=== PATIENT | female | born 1990 | race Caucasian/White ===

== ENCOUNTER 2017-01-31 17:23 | Emergency (ER) | payer BC, OTHER ==
[~2017-01-31] VITALS: Ht 165.1 cm; Wt 69.9 kg
[~2017-01-31 17:23] MED LIST: BCPILLS PO; DOXY100C76 PO
[2017-01-31 17:36] VITALS: TEMP 36.8; Ht 165.1 cm; Wt 69.9 kg
[2017-01-31] MEDS ORDERED: METOCLOPRAMIDE HCL INJ 5 MG/ML 2 ML VIAL IV STA (17:47)
[2017-01-31] MEDS ORDERED: MoRPHine SULFATE 10 MG/ML CARP/VIAL IV STA (17:47)
[2017-01-31] MEDS ORDERED: SODIUM CHLORIDE 0.9% 1000ML 1,000 ML IV STA (17:47)
--- NOTE | 2017-01-31 17:51 | EMERGENCY ROOM VISIT NOTE ---
History Report prepared by Wilmer: Jg Diaz Under the Supervision of: Dr. Walter Mcdaniel M.D. First contact with patient: 17:40 Chief Complaint: ABDOMINAL PAIN Stated Complaint: LOWER ABD PIAN AND GROIN History of Present Illness The patient is a 26 year old female who presents to the Emergency Room with complaints of groin and RLQ abdominal pain that began 3 days ago. She rates her pain a 6/10 in severity. Her pain was gradual in the beginning, but has now been constant. She has not taken anything for the pain. She denies any past medical history. There is no chance that she is . Her last menstrual period was 3 weeks ago. She still has her gallbladder and appendix. She has not had any abdominal surgeries. She denies any urinary symptoms, nausea, vomiting, diarrhea, and other symptoms at this time. Her pain worsens with palpation. Source of History: patient Onset: 3 days ago Position: abdomen (RLQ), pelvis (right groin) Symptom Intensity: 6/10 Quality: sharp Timing: constant Modifying Factors (Worsening): other (palpation) Associated Symptoms: No diarrhea, No nausea, No urinary symptoms, No vomiting Review of Systems See HPI for pertinent positives & negatives. A total of 10 systems reviewed and were otherwise negative. Past Medical & Surgical Medical Problems: (1) No Known Active Medical Problems Family History FH: HTN (hypertension) FH: cancer Social History Smoking Status: Never Smoker Alcohol Use: none Housing Status: lives with family Occupation Status: employed Current/Historical Medications Scheduled Control Pills ( Control Pills), 1 TAB PO DAILY Scheduled PRN Oxycodone/Acetaminophen 5MG/325MG (Percocet 5MG/325MG), 1-2 TAB PO Q4H PRN for Pain Allergies Coded Allergies: Sulfa Antibiotics (Verified Allergy, Unknown, ., 01/31/17) Physical Exam Vital Signs Date Time Temp Pulse Resp B/P Pulse Ox O2 Delivery O2 Flow Rate FiO2 01/31/17 19:50 62 16 152/95 99 01/31/17 17:36 36.8 56 16 150/90 100 Room Air Physical Exam GENERAL: Patient is a healthy-appearing well-nourished HEAD: Normocephalic atraumatic EYES: Ocular movements intact pupils equal and react to light OROPHARYNX mucous membranes are moist no exudates present no erythema or edema present NECK: Supple no nuchal rigidity CHEST: Good equal expansion LUNGS: Clear and equal to auscultation CARDIAC: Normal S1 and S2 ABDOMEN: Soft, mild tenderness to the right lower quadrant. No guarding or rigidity. BACK: No CVA tenderness EXTREMITIES: No pain upon palpation normal muscle strength in all groups no clubbing cyanosis or edema NEURO: Patient is following commands is answering questions appropriately. Alert and oriented x3 Cranial Nerves 2-12 grossly intact Medical Decision & Procedures ER Provider Diagnostic Interpretation: Radiology results as stated below per my review and radiologist interpretation: ULTRASOUND OF THE PELVIS CLINICAL HISTORY: Right pelvic pain. COMPARISON STUDY: No priors. TECHNIQUE: Real-time, grayscale, and color flow sonography of the pelvis is performed both transabdominally and endovaginally. Images are reviewed in the transverse and longitudinal planes. FINDINGS: Uterus: The uterus is normal in size and echotexture, measuring 5.8 x 2.7 x 3.3 cm. Endometrium: The endometrium is normal in appearance, and the endometrial stripe is normal in thickness measuring up to 0.5 cm. Ovaries: The ovaries are normal in size and morphology. The right ovary measures 4.8 x 4.4 x 3.7 cm and the left ovary measures 1.5 x 1.4 x 1.2 cm. There is a 4.5 cm simple appearing right ovarian cyst. Small follicles are noted in the left ovary. Normal Doppler waveforms are shown within both ovaries. Pelvis: There is trace free fluid in the cul-de-sac. No concerning adnexal lesion is seen. IMPRESSION: 1. There is a 4.5 cm simple appearing cyst identified in the right ovary. There is no sonographic evidence of ovarian torsion at the time of examination. 2. Unremarkable sonographic appearance of the uterus and left ovary. 3. There is trace free fluid in the cul-de-sac, likely within physiologic limits. Electronically signed by: Felix Coyne M.D. 01/31/2017 7:14 PM Dictated Date/Time: 01/31/2017 7:12 PM Laboratory Results 01/31/17 18:00 Red Blood Count 4.47, Mean Corpuscular Volume 91.1, Mean Corpuscular Hemoglobin 31.5, Mean Corpuscular Hemoglobin Concent 34.6, Mean Platelet Volume 10.4, Neutrophils (%) (Auto) 45.8, Lymphocytes (%) (Auto) 45.5, Monocytes (%) (Auto) 7.0, Eosinophils (%) (Auto) 1.0, Basophils (%) (Auto) 0.5, Neutrophils # (Auto) 2.77, Lymphocytes # (Auto) 2.75, Monocytes # (Auto) 0.42, Eosinophils # (Auto) 0.06, Basophils # (Auto) 0.03 01/31/17 18:00 Test 01/31/17 00:00 01/31/17 18:00 Urine Color YELLOW Urine Appearance CLEAR (CLEAR) Urine pH 6.5 (4.5-7.5) Urine Specific [place] 1.000 (1.000-1.030) Urine Protein NEG (NEG) Urine Glucose (UA) NEG (NEG) Urine Ketones NEG (NEG) Urine Occult Blood NEG (NEG) Urine Nitrite NEG (NEG) Urine Bilirubin NEG (NEG) Urine Urobilinogen NEG (NEG) Urine Leukocyte Esterase NEG (NEG) Urine Test NEG (NEG) White Blood Count 6.04 K/uL (4.8-10.8) Red Blood Count 4.47 M/uL (4.2-5.4) Hemoglobin 14.1 g/dL (12.0-16.0) Hematocrit 40.7 % (37-47) Mean Corpuscular Volume 91.1 fL (80-100) Mean Corpuscular Hemoglobin 31.5 pg (25-34) Mean Corpuscular Hemoglobin Concent 34.6 g/dl (32-36) Platelet Count 264 K/uL (130-400) Mean Platelet Volume 10.4 fL (7.4-10.4) Neutrophils (%) (Auto) 45.8 % Lymphocytes (%) (Auto) 45.5 % Monocytes (%) (Auto) 7.0 % Eosinophils (%) (Auto) 1.0 % Basophils (%) (Auto) 0.5 % Neutrophils # (Auto) 2.77 K/uL (1.4-6.5) Lymphocytes # (Auto) 2.75 K/uL (1.2-3.4) Monocytes # (Auto) 0.42 K/uL (0.11-0.59) Eosinophils # (Auto) 0.06 K/uL (0-0.5) Basophils # (Auto) 0.03 K/uL (0-0.2) RDW Standard Deviation 42.4 fL (36.4-46.3) RDW Coefficient of Variation 12.7 % (11.5-14.5) Immature Granulocyte % (Auto) 0.2 % Immature Granulocyte # (Auto) 0.01 K/uL (0.00-0.02) Anion Gap 7.0 mmol/L (3-11) Est Creatinine Clear Calc Drug Dose 77.4 ml/min Estimated GFR () 81.4 Estimated GFR (Non- 70.2 BUN/Creatinine Ratio 13.9 (10-20) Calcium Level 8.8 mg/dl (8.5-10.1) Total Bilirubin 0.2 mg/dl (0.2-1) Direct Bilirubin < 0.1 mg/dl (0-0.2) Aspartate Amino Transf (AST/SGOT) 16 U/L (15-37) Alanine Aminotransferase (ALT/SGPT) 24 U/L (12-78) Alkaline Phosphatase 54 U/L (45-117) Total Protein 7.5 gm/dl (6.4-8.2) Albumin 3.5 gm/dl (3.4-5.0) Lipase 166 U/L (73-393) Labs reviewed by ED physician. Medications Administered Medications (Trade) Dose Ordered Sig/Yossi Route Start Time Stop Time Status Last Admin Dose Admin Sodium Chloride (Nss 1000ml) 1,000 ml @ 999 mls/hr Q1H1M STAT IV 01/31/17 17:47 01/31/17 18:47 DC 01/31/17 18:20 999 MLS/HR Oxycodone/ Acetaminophen (Percocet 5/ 325MG Home Pack) 1 homepack UD ONCE PO 01/31/17 19:30 01/31/17 19:31 DC 01/31/17 19:42 1 HOMEPACK ED Course 1740: Past medical records reviewed. The patient was evaluated in room B5. A complete history and physical examination was performed. 1746: Reglan Inj 10 mg IV, Morphine Sulfate 6 mg IV, Sodium Chloride 1000 ml @ 999 mls/hr IV 0: Oxycodone/Acetaminophen 1 homepack PO 3: Upon reexamination the patient is resting. I discussed results and treatment plan with the patient. She verbalizes agreement and understanding. The patient is ready for discharge. Medical Decision Differential diagnosis: Etiologies such as appendicitis, diverticulitis, PUD, biliary pathology, UTI, pancreatitis, obstruction, mesenteric ischemia, aortic pathology, infections, inflammatory bowel disease, renal colic, as well as others were entertained. This is a 26-year-old female who presents emergency department complaining of right lower quadrant abdominal pain. The patient is not by her laboratory work, CBC renal profile liver profile lipase are all normal. Serial abdominal examinations were performed on the patient in the emergency department and at no time did the patient exhibited a surgical abdomen. Using shared medical decision-making the patient was sent for an ultrasound of her pelvis. She did however refuse a CAT scan of the abdomen pelvis based on her laboratory work. An IV was established, patient given normal saline bolus. Repeat abdominal exam again revealed no right lower quadrant rebound or guarding. I believe based on the benign abdominal CAT scan. I do suspect that the patient is suffering from the ovarian cyst. I asked that the patient follow -up with [facility]. She was given Percocet for home. Patient was in agreement with the treatment plan. Impression Primary Impression: Right lower quadrant abdominal pain Additional Impression: Ovarian cyst Scribe Attestation The scribe's documentation has been prepared under my direction and personally reviewed by me in its entirety. I confirm that the note above accurately reflects all work, treatment, procedures, and medical decision making performed by me. Departure Information Dispostion Home / Self-Care Prescriptions Oxycodone/Acetaminophen 5MG/325MG (PERCOCET 5MG/325MG) Tab 1-2 TAB PO Q4H Y for Pain, #14 TAB Prov: Walter Mcdaniel MD 01/31/17 Referrals No Doctor, Assigned (PCP) Forms HOME CARE DOCUMENTATION FORM, IMPORTANT VISIT INFORMATION, School Instructions, Work Instructions Patient Instructions ED Abd Pain Unkn Cause Fem, ED Cyst Ovarian, My [facility] Additional Instructions Follow up with DR Maurer's office You received narcotic or benzodiazepene medication while in the emergency room today. Do not drive, operate heavy machinery, or drink alcohol under the influence of this medication. Take 600 mg Ibuprofen every 6 hours Take Percocet for breakthrough pain Culture results are usually available in approx 48 hours You have been examined and treated today on an emergency basis only. This is not a substitute for, or an effort to provide, complete comprehensive medical care. It is impossible to recognize and treat all injuries or illnesses in a single emergency department visit. It is therefore important that you follow up closely with Dr Scott. Call as soon as possible for an appointment. Thank you for your time and consideration. I look forward to speaking with you again soon. Please don't hesitate to call us if you have any questions. Problem Qualifiers Additional Impression: Ovarian cyst Laterality: right Qualified Codes: N83.201 - Unspecified ovarian cyst, right side
[2017-01-31] MEDS ORDERED: OPTIRAY 320 IV PRN (18:00)
[2017-01-31 18:04] LABS: URINE APPEARANCE CLEAR (CLEAR); URINE BILIRUBIN NEG (NEG); URINE COLOR YELLOW; URINE NITRITE NEG (NEG); URINE PH 6.5 (4.5-7.5); UROBILINOGEN NEG (NEG)
[2017-01-31 18:09] LABS: MANUAL MICROSCOPIC REQUIRED? NO; REVIEW REQ? NO
[2017-01-31 18:14] LABS: BASO % 0.5 %; BASO ABS # 0.03 K/uL (0-0.2); COMPLETE YES; HEMATOCRIT 40.7 % (37-47); IG% 0.2 %; LYMPH % 45.5 %; LYMPH ABS # 2.75 K/uL (1.2-3.4); MEAN CELL VOLUME 91.1 fL (80-100); MEAN CORPUSCULAR HEMOGLOBIN 31.5 pg (25-34); MEAN CORPUSCULAR HGB CONC 34.6 g/dl (32-36); MEAN PLATELET VOLUME 10.4 fL (7.4-10.4); NEUT % 45.8 %; PLATELET COUNT 264 K/uL (130-400); RED BLOOD COUNT 4.47 M/uL (4.2-5.4); WHITE BLOOD COUNT 6.04 K/uL (4.8-10.8)
[2017-01-31 18:33] LABS: ALT/SGPT 24 U/L (12-78); AST/SGOT 16 U/L (15-37); BLOOD UREA NITROGEN 15 mg/dl (7-18); BUN/CREATININE RATIO 13.9 (10-20); CALCIUM 8.8 mg/dl (8.5-10.1); CARBON DIOXIDE 26 mmol/L (21-32); CHLORIDE 109 mmol/L (98-107); GLUCOSE 89 mg/dl (70-99); POTASSIUM 3.7 mmol/L (3.5-5.1); SODIUM 142 mmol/L (136-145)
[2017-01-31 18:36] LABS: ALKALINE PHOSPHATASE 54 U/L (45-117)
--- NOTE | 2017-01-31 19:15 | DIAGNOSTIC IMAGING REPORT ---
ULTRASOUND OF THE PELVIS CLINICAL HISTORY: Right pelvic pain. COMPARISON STUDY: No priors. TECHNIQUE: Real-time, grayscale, and color flow sonography of the pelvis is performed both transabdominally and endovaginally. Images are reviewed in the transverse and longitudinal planes. FINDINGS: Uterus: The uterus is normal in size and echotexture, measuring 5.8 x 2.7 x 3.3 cm. Endometrium: The endometrium is normal in appearance, and the endometrial stripe is normal in thickness measuring up to 0.5 cm. Ovaries: The ovaries are normal in size and morphology. The right ovary measures 4.8 x 4.4 x 3.7 cm and the left ovary measures 1.5 x 1.4 x 1.2 cm. There is a 4.5 cm simple appearing right ovarian cyst. Small follicles are noted in the left ovary. Normal Doppler waveforms are shown within both ovaries. Pelvis: There is trace free fluid in the cul-de-sac. No concerning adnexal lesion is seen. IMPRESSION: 1. There is a 4.5 cm simple appearing cyst identified in the right ovary. There is no sonographic evidence of ovarian torsion at the time of examination. 2. Unremarkable sonographic appearance of the uterus and left ovary. 3. There is trace free fluid in the cul-de-sac, likely within physiologic limits. Electronically signed by: Felix Coyne M.D. 01/31/2017 7:14 PM Dictated Date/Time: 01/31/2017 7:12 PM
[2017-01-31] MEDS ORDERED: OXYC-57 PO (19:24)
[2017-01-31] MEDS ORDERED: PERCOCET HOME PACK PO ONE (19:30)
[2017-01-31 19:50] VITALS: BP 152/95; PULSE 62; O2SAT 99
== END 2017-01-31 19:52 | disposition home or self-care (01) ==
LOC: C.EDB 17:25
DX: R10.31 Right lower quadrant pain (principal); N83.201 Unspecified ovarian cyst, right side; Z88.2 Allergy status to sulfonamides; Z82.49 Family history of ischemic heart disease and other diseases of the circulatory system

== ENCOUNTER 2020-01-08 22:57 | Inpatient (IN) ==
[2020-01-09] MEDS ORDERED: OXYTOCIN 30 UNITS/500 ML BAG IV PRN ×2 (01:39→10:07)
[2020-01-09] MEDS: LACTATED RINGER'S 1,000 ML IV PRN ×3 (01:47→06:30)
[2020-01-09] MEDS ORDERED: BUPIVACAINE 0.25% 30 ML VIAL ONE (01:50)
[2020-01-09] MEDS ORDERED: fentaNYL 2MCG/ML ROPIV 1.25MG/ML 100 ML BAG EPI ONE (01:50)
[2020-01-09] MEDS ORDERED: ePHEDrine sulfate 50 MG/ML AMP ONE (01:50)
[2020-01-09] MEDS ORDERED: fentaNYL citrate 100 MCG/2 ML VIAL ONE (01:50)
[2020-01-09 02:03] LABS: Hematocrit (blood only) 38.1 % (37-47); Hemoglobin 13.8 g/dL (12.0-16.0); Mean Corpuscular Hemoglobin 33.3 pg (25-34); Mean Platelet Volume 11.2 fL (7.4-10.4); Platelet Count 213 K/uL (130-400); RDW Coefficient of Variation 13.2 % (11.5-14.5); Red Blood Count 4.14 M/uL (4.2-5.4); White Blood Count 11.74 K/uL (4.8-10.8)
[2020-01-09 02:05] LABS: Mean Corpuscular Hgb Conc 36.2 g/dL (32-36)
--- NOTE | 2020-01-09 02:30 | Anesthesiology Consultation ---
Date of Service January 09, 2020 Assessment & Plan (1) Encounter for pre-operative examination: Chart Review Chart Review: Acceptable Risk for Labor Epidural History Height/Weight Height: 5 ft 5 in Weight: 78.471 kg Allergies Allergy/AdvReac Type Severity Reaction Status Date / Time Sulfa (Sulfonamide Allergy Unknown Hives Verified 01/08/20 23:07 Antibiotics) Medications Home Medications Medication Instructions Recorded Confirmed Last Taken vit-iron fum-folic ac 1 tab PO DAILY 01/08/20 01/08/20 01/08/20 20:00 [ Vitamin] valacyclovir [Valtrex] 500 mg PO DAILY 01/08/20 01/08/20 01/08/20 08:00 Active Medications Generic Name Dose Route Start Last Admin Trade Name Freq PRN Reason Stop Dose Admin Lactated Ringer's 1,000 mls @ 125 mls/hr 01/09/20 01:39 01/09/20 01:47 Lr IV 01/11/20 01:38 999 mls/hr .Q8H PRN Administration L&D Protocol Protocol Past Medical History Medical History No active medical problems No significant medical problems Social History Smoking Status: Never smoker Hx Alcohol Use: No Hx Substance Use: No substance use type: does not use Physical Exam Vital Signs Last Vital Signs Temp 36.5 C 01/08/20 23:05 Pulse 57 L 01/09/20 02:24 Resp 18 01/08/20 23:05 BP 145/86 H 01/09/20 01:56 Pulse Ox 100 01/09/20 02:24 Testing Laboratory Results 01/09/20 01:53
[2020-01-09] MEDS ORDERED: fentaNYL 2MCG/ML ROPIV 1.25MG/ML 100 ML BAG EPI PRN (03:09)
[2020-01-09] MEDS ORDERED: ONDANSETRON INJ 2 MG/ML 2 ML VIAL IV PRN (03:09)
[2020-01-09] MEDS ORDERED: ePHEDrine sulfate 50 MG/ML AMP IV PRN (03:09)
[2020-01-09] MEDS ORDERED: NALOXONE HCL 0.4 MG/1 ML VIAL/CARP IV PRN (03:09)
[2020-01-09] MEDS ORDERED: NALOXONE HCL 1 MG in SODIUM CHLORIDE 0.9% 1000ML 1,000 ML IV PRN (03:09)
--- NOTE | 2020-01-09 07:23 | Obstetrical Progress Note ---
Date of Service January 09, 2020 Assessment & Plan Admission and Anticipated Discharge Date Admission Date: January 09, 2020 Subjective Admit Note 29 F P0000 at 40.3 weeks admitted in labor. GBS is negative. FHT Cat 1. Will admit in labor. Plan for epidural. Results & Data ([facility]) Vital Signs (Past 12 Hours) Vital Signs Temp Pulse Resp BP Pulse Ox 01/09/20 07:16 71 172/66 H 01/09/20 07:15 83 97 01/09/20 07:10 87 97 01/09/20 07:05 78 97 01/09/20 07:00 100 H 98 01/09/20 06:55 97 H 97 01/09/20 06:50 76 97 01/09/20 06:45 79 97 01/09/20 06:40 80 97 01/09/20 06:35 107 H 97 01/09/20 06:31 90 92 01/09/20 06:30 87 98 01/09/20 06:27 77 153/73 H 01/09/20 06:26 102 H 91 01/09/20 06:25 90 94 01/09/20 06:20 152 H 98 01/09/20 06:19 113 H 86 L 01/09/20 06:15 98 H 98 01/09/20 06:10 112 H 97 01/09/20 06:05 138 H 98 01/09/20 06:00 80 97 01/09/20 05:58 91 H 128/75 01/09/20 05:55 87 97 01/09/20 05:50 76 97 01/09/20 05:45 37.0 C 81 18 98 01/09/20 05:41 65 108/63 01/09/20 05:40 65 97 01/09/20 05:35 88 97 01/09/20 05:30 60 96 01/09/20 05:27 65 18 104/57 L 01/09/20 05:25 62 96 01/09/20 05:20 61 97 01/09/20 05:15 64 96 01/09/20 05:13 65 18 118/70 01/09/20 05:10 66 97 01/09/20 05:05 72 97 01/09/20 05:00 75 97 01/09/20 04:57 93 H 105/63 01/09/20 04:55 89 97 01/09/20 04:50 114 H 98 01/09/20 04:45 127 H 96 01/09/20 04:40 78 123/74 97 01/09/20 04:37 90 97 01/09/20 04:32 69 97 01/09/20 04:27 74 98 01/09/20 04:24 71 18 119/81 01/09/20 04:22 64 99 01/09/20 04:17 66 99 01/09/20 04:12 87 125/72 99 01/09/20 04:07 66 100 01/09/20 04:02 69 100 01/09/20 04:00 106/72 01/09/20 03:57 87 98 01/09/20 03:53 90 92 01/09/20 03:52 85 97 01/09/20 03:48 36.4 C L 18 01/09/20 03:47 89 100 01/09/20 03:44 110/60 01/09/20 03:42 84 99 01/09/20 03:39 94 H 94 01/09/20 03:37 90 97 01/09/20 03:32 101 H 98 01/09/20 03:28 110 H 93 01/09/20 03:27 105 H 97 01/09/20 03:25 18 122/76 01/09/20 03:22 101 H 99 01/09/20 03:21 84 18 136/71 01/09/20 03:17 89 99 01/09/20 03:16 142 H 184/115 H 01/09/20 03:14 85 87 L 01/09/20 03:12 89 176/116 H 99 01/09/20 03:09 103 H 137/76 01/09/20 03:07 91 H 98 01/09/20 03:04 62 144/99 H 01/09/20 03:03 70 20 153/109 H 01/09/20 03:02 63 99 01/09/20 02:57 56 L 98 01/09/20 02:52 56 L 98 01/09/20 02:47 55 L 99 01/09/20 02:42 62 98 01/09/20 02:34 61 100 01/09/20 02:29 58 L 100 01/09/20 02:24 57 L 100 01/09/20 02:20 69 89 L 01/09/20 02:19 71 100 01/09/20 02:14 69 100 01/09/20 02:09 64 100 01/09/20 02:06 214 H 88 L 01/09/20 01:58 59 L 100 01/09/20 01:56 56 L 145/86 H 01/09/20 01:53 67 100 01/09/20 01:48 53 L 100 01/08/20 23:36 75 131/88 01/08/20 23:16 82 134/85 01/08/20 23:05 36.5 C 85 18 151/95 H
--- NOTE | 2020-01-09 07:26 | Delivery Summary ---
Vaginal Delivery Summary Date of Service January 09, 2020 Vaginal Delivery Summary Delivery Note live female over intact perineum CHRISTOPHER with tight nuchal cord x1 reduced at delivery. Delayed cord clamping. Apgars 7/9 weight pending. cord blood obtained followed by spontaneous delivery of intact placenta. No tears. EBL 100 ml. Final sponge and instrument count are correct. Mom and baby stable.
--- NOTE | 2020-01-09 09:17 | Anesthesia Procedure Note ---
Date of Service January 09, 2020 Anesthesia Post Epidural Note Vital Signs Vital Signs: Temp Pulse Resp BP Pulse Ox 36.7 C 71 18 140/82 97 01/09/20 07:28 01/09/20 09:11 01/09/20 07:28 01/09/20 09:11 01/09/20 07:30 Pain Intensity Abdomen: Pain Intensity: 3 Notes Mental Status: alert / awake / arousable and participated in evaluation Nausea / Vomiting: adequately controlled Pain: adequately controlled Airway Patency, RR, SpO2: stable & adequate BP & HR: stable & adequate Hydration State: stable & adequate Neuraxial Anesthesia: was administered and sensory block is resolving Anesthetic Complications: no major complications apparent and Pt Satisfied with anesthetic care Epidural: Removed without complications and With tip intact
[2020-01-09] MEDS ORDERED: DIPHTHERIA/TETANUS/PERTUSSIS 0.5 ML SYR/VIAL IM ONE (10:07)
[2020-01-09] MEDS ORDERED: BENZOCAINE 20% AER SPR 82.5 GM CAN EXT PRN (10:07)
[2020-01-09] MEDS ORDERED: MEASLES, MUMPS & RUBELLA VIRUS VIAL SQ ONE (10:07)
[2020-01-09] MEDS ORDERED: ACETAMINOPHEN 325 MG TAB PO PRN (10:07)
[2020-01-09] MEDS ORDERED: NON-FORMULARY MEDICATION (Prenatal Vit-Iron Fum-Folic Ac [Prenatal Vitamin] 1 TAB) PO SCH (10:07)
[2020-01-09] MEDS ORDERED: HYDROCORTISONE ACETATE 25 MG SUPP PR PRN (10:07)
[2020-01-09] MEDS ORDERED: SUPERCREAM 0.870% 15 GM JAR EXT PRN (10:07)
[2020-01-09] MEDS ORDERED: bisacodyL 10 MG SUPP PR PRN (10:07)
[2020-01-09] MEDS: IBUPROFEN 600 MG TAB PO PRN ×2 (10:18→18:37)
[2020-01-09] MEDS: FERROUS SULFATE 325 MG TAB PO SCH (10:23)
[2020-01-09] MEDS: PRENATAL VITAMIN 1 TAB PO SCH (10:23)
[2020-01-09] MEDS: DOCUSATE SODIUM 100 MG CAP PO SCH ×2 (10:23→20:39)
[2020-01-10 06:32] LABS: Hematocrit (blood only) 36.5 % (37-47); Hemoglobin 12.2 g/dL (12.0-16.0); Mean Corpuscular Hemoglobin 32.1 pg (25-34); Mean Corpuscular Hgb Conc 33.4 g/dL (32-36); Mean Corpuscular Volume 96.1 fL (80-100); Mean Platelet Volume 11.1 fL (7.4-10.4); Platelet Count 176 K/uL (130-400); RDW Coefficient of Variation 13.6 % (11.5-14.5); RDW Standard Deviation 46.9 fL (36.4-46.3)
--- NOTE | 2020-01-10 08:51 | Obstetrical Progress Note ---
Date of Service January 10, 2020 Assessment & Plan Admission and Anticipated Discharge Date Admission Date: January 09, 2020 Subjective doing well Physical Exam Constitutional: WD/WN, vitals as above comfortable abdomen soft fundus firm no edema neg Suellen's tent d/c in AM Results & Data ([facility]) Vital Signs (Past 12 Hours) Vital Signs Temp Pulse Pulse Resp BP Pulse Ox 01/10/20 08:00 36.5 C 77 20 133/87 97 01/10/20 03:05 36.5 C 66 16 142/89 H 97 01/09/20 23:00 36.6 C 60 16 144/91 H 97 Laboratory Results Laboratory Results - last 72 hr 01/09/20 01/10/20 01:53 06:08 WBC 11.74 H 12.90 H RBC 4.14 L 3.80 L Hgb 13.8 12.2 Hct 38.1 36.5 L MCV 92.0 96.1 MCH 33.3 32.1 MCHC 36.2 H 33.4 RDW Std Deviation 44.0 46.9 H RDW Coeff of Nohelia 13.2 13.6 Plt Count 213 176 MPV 11.2 H 11.1 H
[2020-01-10] MEDS: DOCUSATE SODIUM 100 MG CAP PO SCH ×2 (09:00→20:50)
[2020-01-10] MEDS: FERROUS SULFATE 325 MG TAB PO SCH (09:00)
[2020-01-10] MEDS: IBUPROFEN 600 MG TAB PO PRN ×2 (09:00→17:57)
[2020-01-10] MEDS: PRENATAL VITAMIN 1 TAB PO SCH (09:00)
[2020-01-10] MEDS ORDERED: bisacodyL 5 MG TABEC PO SCH (20:00)
[2020-01-11 07:00] LABS: Hematocrit (blood only) 36.6 % (37-47); Hemoglobin 12.5 g/dL (12.0-16.0)
[2020-01-11] MEDS: DOCUSATE SODIUM 100 MG CAP PO SCH (08:18)
[2020-01-11] MEDS: FERROUS SULFATE 325 MG TAB PO SCH (08:18)
[2020-01-11] MEDS: PRENATAL VITAMIN 1 TAB PO SCH (08:18)
[2020-01-11] MEDS: IBUPROFEN 600 MG TAB PO PRN ×2 (08:18→18:29)
--- NOTE | 2020-01-11 11:27 | Obstetrical Progress Note ---
Date of Service January 11, 2020 Assessment & Plan Admission and Anticipated Discharge Date Admission Date: January 09, 2020 Physical Exam Physical Exam: abdomen soft and non tender no calf tenderness ambulating well vaginal bleeding scant hgb 23.5 Results & Data ([facility]) Vital Signs (Past 12 Hours) Vital Signs Temp Pulse Resp BP Pulse Ox 01/11/20 08:10 36.7 C 64 18 139/83 99 01/10/20 23:40 36.5 C 57 L 18 144/85 H
[2020-01-11] MEDS ORDERED: LABETALOL HCL 100 MG TAB PO SCH ×2 (21:00)
== END 2020-01-11 20:05 | disposition home or self-care (01) | DRG 807 ==
LOC: OPB 22:57 → 4S1 23:02 → 4N 01-09 10:16 → 4S2 01-10 20:59

== ENCOUNTER 2025-01-27 04:39 | Inpatient (IN) ==
--- OUTSIDE RECORDS SUMMARY | 2025-01-27 04:43 | External Medical Summary ---
Author Name Unknown Address Unknown Organization [id number]:[facility] [address] [place] [address] Laboratory Report Ordering Provider Test Date Status NICK BRADFORD 01/09/2025 16:09:07 Final Observation Date Value Abnormality Reference (Units ) Status Streptococcus agalactiae DNA [Presence] in Specimen by YANCI with probe detection 01/09/2025 16:09:07 Negative Negative Final No Group B Streptococcus det ected by culture-enhanced PCR (amplified probe). GBS GBSCT - [facility] 01/09/2025 16:09:07 0.0 Final GBS SPCCT - [facility] 01/09/2025 16:09:07 31.5 Final Performing Location [facility] - [address] [place] [id number]
--- OUTSIDE RECORDS SUMMARY | 2025-01-27 04:43 | External Medical Summary | Summary of Care ---
Author Name Unknown Organization [facility] Address [address] [facility] [place] [address] Phone [phone] Care Team Providers Care Continuous Drier Operator Name Role Phone Jay Scott MD Primary Care Provide r Reason for Visit * Reason Onset Date Comments Forms Request 12/09/2024 Encounter Details Date Type Department Care Team (Late st Contact Info) Description 12/09/2024 Telephone Gynecology/Obstetrics [facility] [address] [place] [phone] Taina Davis PA-C [address] [place] [phone] Forms Request Allergies Active Allergy Reactions Criticality Noted Date Comments Bee Venom 01/28/2003 Sulfa Antibiotics Hives High 04/08/2013 documented as of this encounter (statuses as of 12/09/2024) Medications 28-0.8 MG Oral Tablet Take by mouth. Active Escitalopram Oxalate 5 MG Oral Tablet (Lexapro)Indica tions:CROW (generalized anxiety disorder) Take 1 Tablet by mouth in the morning. In the morning.. 90 Tablet 3 10/18/2024 Active Breast Pump Dispense double electric breast pump. Dx:Z39.1 1 Each 11/25/2024 Active valACYclovir HCl 500 MG Oral Tablet (Valtrex)Indica tions:HSV-1 (herpes simplex virus 1) infection Take 1 Tablet by mouth in the morning and 1 Tablet before bedtime. Staring at 36 weeks .. 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 CROW (generalized anxiety disorder) 12/28/2021 Overview (07/01/2024): Taking lexapro HSV-1 (herpes simplex virus 1) infection 015 Overview (05/24/2019): Valtrex 36 weeks Acne Estimated Date of Delivery Comme nts Yes 01/30/2025 Based on last me nstrual period of 04/25/2024 (Approximate) documented as of this encounter (statuses as of 12/09/2024) Resolved Problems Problem Noted Date Diagnosed Date Resolved Date , normal first 05/24/201904/21 Routine medical exam 10/19/2013 024 documented as of this encounter (statuses as of 12/09/2024) Immunizations Name Administration Dates Next Due DTP Vaccine 06/27/1994, 3,05/17/1993,03/08 DTaP Dipth/Tet/Acell Pertussis (Infanrix), Peds 09/30/1997 HPV Vaccine, 4-Valent 07/29/2009,02/10/2009,11/21 Haemophilius B (HIB), unspecified 1993,07/20/1993,05/17/1993,03/08 Hepatitis B Vaccine 07/20/1993,02/02/1993,1992 MMR - Measles/Mumps/Rubella Vaccine 09/30/1997,0 06/27/1994 Meningococcal Conjugate Vacc ine (Menactra/Menveo) 12/18/2008 OPV - Polio Virus Vaccine (Oral) 997,06/27/1994,05/17/1993,03/08 PPD 03/31/2015,08/26/2013,07/02/2012 Seasonal Influenza Vac., MDV , IM, 0.5 mL (Fluzone) 08/30/2011,09/24/2007,10/23/2003 Seasonal Influenza, PF, 6 M & above, IM , (FluLaval or Fluzone) 11/18/2020,10/14/2019 TB Nicki Test 02/16/1999 TD, Preservative Free 06/07/2005 TDAP (age 10 and older)(Boostrix) 10/14/2019 TDAP, Age 7 and older, IM (Adacel) 05/10/2010 documented as of this encounter Social History Tobacco Use Types Packs/Day Years Used Date Smoking Tobacco: Never Smokeless Tobacco: Never Alcohol Use Standard Drinks/Week Comments No 0 (1 standard drink = 0.6 oz pur e alcohol) PHQ-2 Answer Date Recorded PHQ-2 Score 0 05/14/2019 Hunger Vital Sign Answer Date Recorded Within the past 12 months, y ou worried that your food would run out before you got the money to buy more. Never true 12/09/19 25 Within the past 12 months, t he food you bought just didn't last and you didn't have money to get more. Never true 12/09/2024 [place] Depression Scale Answer Date Recorded [place] Depression Scale Total 4 07/01/2024 The thought of harming myself has occurred to me . Never 07/01/2024 Childcare Answer Date Recorded Do you feel overwhelmed with taking care of a child, family member or friend? No 12/09/2024 Does your family need help f inding childcare? (Household - for ages 0-17 years) Not on file 12/09/2024 Clothing Answer Date Recorded Have you been unable to get clothing when it was really needed? No 12/09/2024 Is your family able to get c lothes or diapers when needed? (Household - for ages 0-17 years) Not on file 12/09/2024 Personal Safety Answer Date Recorded Do you feel unsafe or have concerns for your saf ety? No 12/09/2024 Do you have concerns for you r family's safety? (Household - for ages 0-17 years) Not on file 12/09/2024 Utilities Answer Date Recorded Do you have trouble paying y our heating, water, or electric bill? No 12/09/2024 Is your family able to pay t he heat, water, or electric bill? (Household - for ages 0-17 years) Not on file 12/09/2024 Does your family have access to good internet? (Household - for ages 0-17 years) Not on file 12/09/2024 Employment Status Answer Date Recorded Are you unemployed or without regular income? No 12/09/2024 Does the household have a re lar source of income? (Household - for ages 0-17 years) Not on file 12/09/2024 Social Connections Answer Date Recorded How often do you feel lonely or isolated from th ose around you? Never 12/09/2024 Financial Resource Strain Answer Date R ecorded Do you have any trouble payi ng for your medications, or do you think you might in the future? No 12/09/2024 Does your family have troubl e paying for medicine? (Household - for ages 0-17 years) Not on file 12/09/2024 Transportation Needs Answer Date Record ed Do you have trouble getting a ride to medical visits or work? (Adult - for ages 18 years and over) Not on file 12/09/2024 Does your family have a hard time getting a ride to doctors visits? (Household - for ages 0-17 years) Not on file 12/09/2024 Has lack of transportation k ept you from medical appointments, meetings, work, or from getting things needed for daily living? Check all that apply. No 12/09/2024 Do you (or your family) have trouble finding or paying for a ride (transportation)? (Household - for ages 0-17 years) Not on file 12/09/2024 Housing Stability Answer Date Recorded Do you currently live in a s helter or have no steady place to sleep at night? No 12/09/2024 Do you think you are at risk of becoming homeless? (Adult - for ages 18 years and over) Not on file 12/09/2024 Does your family worry about paying for your home or becoming homeless? (Household - for ages 0-17 years) Not on file 0 12/09/2024 Are you homeless or worried that you might be in the future? No 12/09/2024 Are you (or your family) torrey eless or worried that you might be in the future? (Household - for ages 0-17 years) Not on file Food Insecurity Answer Date Recorded Do you need food for this week? No 12/09/2024 Are you able to get enough f ood for your family? (Household - for ages 0-17 years) Not on file 12/09/2024 Does your family need food t his week? (Household - for ages 0-17 years) Not on file 12/09/2024 Do you always have enough fo od for your family? (Household - for ages 0-17 years) Not on file 12/09/2024 Estimated Date of Delivery Comme nts Yes 01/30/2025 Based on last me nstrual period of 04/25/2024 (Approximate) Sex and Gender Information Value Date Recorded Sex Assigned at Female 06/18/2024 2:00 PM EDT Legal Sex Female 7:15 AM EST Gender Identity Female 06/18/2024 2:00 PM EDT Sexual Orientation Straight 06/18/2024 2: 00 PM EDT documented as of this encounter Miscellaneous Notes * Telephone Encounter - Caryn Camp LPN - 12/09/2024 5:05 PM EST On Taina's desk for signature. * Telephone Encounter - Caryn Camp LPN - 12/09/2024 4:57 PM EST Pt dropped of FMLA. On Caryn's desk. documented in this encounter Plan of Treatment Upcoming Encounters Date Type Department Care Team (Late st Contact Info) Description 12/23/2024 11:30 AM EST Office Visit Gynecology/Obstetrics [address] [place] [address] Rachelle Post CRNP [address] [place] [phone] 12/23/2024 2:20 PM EST Office Visit Dermatology [address] [place] [address] Rosalia Dove PA-C [address] [place] [address] [place] [phone] 06/23/2025 6:20 PM EDT Office Visit Family Medicine [address] [place] [phone] Jay Scott MD [address] [place] [address] [place] [phone] Health Maintenance Due Date Last Done Comments Depression Screening 05/14/2020 05/14/2019 HPV/Co-Test 2022 COVID-19 Vaccine ( season) 2024 Influenza Vaccine (FLU shot) (#1) 2024 11/18/2020, 10/14/2019, 08/30/2011, Additional history exists Cervical Cancer Screening 12/28/2024 Pap Smear 12/28/2024 12/28/2021, 12/2017, 05/04/2015, Additional history exists DTap/Tdap Vaccines (8 - Td or Tdap) 10/14/2029 10/14/2019, 05/10/2010, 06/07/2005, Additional history exists Hepatitis B Vaccine Completed 07/20/1993, 02/02/1993, 1992 MENINGOCOCCAL (MENACTRA/MENVEO) Aged Out 12/18/2008 No longer eligible based on patient's age to complete this topic HPV (Gardasil) Vaccine Completed 9, 02/10/2009, 12/18/2008 Pneumococcal Vaccine: Pediatrics (0 to 5 Years) and At-Risk Patients (6 to 18 Years and 19+ Years) Aged Out No longer eligib le based on patient's age to complete this topic documented as of this encounter Medical Devices Not on filedocumented as of this encounter Care Teams Continuous Drier Operator Relationship Specialty Start Date End Date Jay Scott MD [address] [place] [address] [place] [phone] PCP - General Family Medicine 11/23/23 documented as of this encounter
--- OUTSIDE RECORDS SUMMARY | 2025-01-27 04:43 | External Medical Summary | Summary of Care ---
Author Name Unknown Organization [facility] Address [address] [facility] [place] [address] Phone [phone] Care Team Providers Care Bark Peeler Name Role Phone Jay Scott MD Primary Care Provide r Reason for Visit * Reason Comments Return Visit Encounter Details Date Type Department Care Team (Late st Contact Info) Description 01/21/2025 12:00 PM EST Office Visit Gynecology/Obstetric s [facility] [address] [place] [phone] Rachelle Post CRNP [address] [place] [phone] Encounter for supervision of normal in multigravida in third trimester*; HSV-1 (herpes simplex virus 1) infection; CROW (generalized anxiety disorder) Allergies Active Allergy Reactions Criticality Noted Date Comments Bee Venom 01/28/2003 Sulfa Antibiotics Hives High 04/08/2013 documented as of this encounter (statuses as of 01/21/2025) Medications 28-0.8 MG Oral Tablet Take by [...] as of this encounter (statuses as of 01/21/2025) Active Problems Problem Noted Date Diagnosed Date [...] as of this encounter (statuses as of 01/21/2025) Resolved Problems Problem Noted Date Diagnosed Date Resolved Date , normal first 05/24/201904/21 Routine medical exam 10/19/2013 024 documented as of this encounter (statuses as of 01/21/2025) Immunizations Name Administration Dates Next Due HPV Vaccine, 4-Valent 07/29/2009,02/10/2009,11/21 Meningococcal Conjugate Vacc ine (Menactra/Menveo) 12/18/2008 PPD 03/31/2015,08/26/2013,07/02/2012 Seasonal Influenza Vac., MDV , IM, 0.5 mL (Fluzone) 08/30/2011,09/24/2007 Seasonal Influenza, PF, 6 M & above, IM , (FluLaval or Fluzone) 11/18/2020,10/14/2019 TDAP (age 10 and older)(Boostrix) 10/14/2019 TDAP, [...] money to buy more. Never true 12/09/19 Within the past 12 months, t he food you bought just didn't last and you didn't have money to get more. Never true 12/09/2024 [place] Depression Scale Answer Date Recorded [place] Depression Scale Total 0 01/09/2025 The thought of harming myself has occurred to me . Never 01/09/2025 Childcare Answer Date Recorded Do you feel [...] 12/09/2024 Does the household have a re gular source of income? (Household - for ages [...] ages 0-17 years) Not on file 12/09/2024 Food Insecurity Answer Date Recorded Within the past 12 months, y ou worried that your food would run out before you got the money to buy more. Never true 12/09/19 25 Within the past 12 months, t he food you bought just didn't last and you didn't have money to get more. Never true 12/09/2024 Do you need food for this week? No 12/09/2024 Estimated Date of Delivery Comme nts Yes 01/30/2025 Based on last me nstrual period of 04/25/2024 (Approximate) Sex and Gender Information Value Date Recorded Sex Assigned at Female 06/18/2024 2:00 PM EDT Legal Sex Female 7:15 AM EST Gender Identity Female 06/18/2024 2:00 PM EDT Sexual Orientation Straight 06/18/2024 2: 00 PM EDT documented as of this encounter Last Filed Vital Signs Vital Sign Reading Time Taken Comments Blood Pressure 118/80 01/21/2025 11:41 AM EST Pulse - - Temperature - - Respiratory Rate - - Oxygen Saturation - - Inhaled Oxygen Concentration - - Weight 77.4 kg (170 lb 9.6 oz) 01/21/2025 11:41 AM EST Height - - Body Mass Index 28.39 01/16/2025 3:34 PM EST documented in this encounter Progress Notes * Rachelle Post CRNP - 01/21/2025 11:54 AM EST 38w5d Has had intermittent contractions for the past few days, coming and going. Would like cervical check. No other concerns. Baby is active. No bleeding or LOF. Has IOL 02/05, but is hoping she can get sooner. Nothing sooner available today. Bilingual Teacher Assistant Documentation Patient offered box maker and declined. CINTHIA Dasilva * Aleksandra Neely CMA - 01/21/2025 11:41 AM EST 38w5d + contractions, not time able right now. More at night, lasts 1-2 hours. Requesting cervical check documented in this encounter Plan of Treatment Upcoming Encounters Date Type Department Care Team (Late st Contact Info) Description 01/28/2025 1:45 PM EDT Office Visit Gynecology/Obstetrics Elke Melendez [address] [place] [phone] Elva Mitchell CRNP [address] [place] [phone] 04/15/2025 10:45 AM EDT Office Visit Dermatology [facility] [place] [address] [facility] [place] [address] Parvez Maldonado MD [address] [facility] [place] [phone] 06/23/2025 6:20 PM EDT Office Visit Family Medicine [address] [phone] Jay Scott MD [address] [place] [address] [place] [phone] Health Maintenance Due Date Last Done Comments Depression Screening 05/14/2020 05/14/2019 HPV/Co-Test 2022 COVID-19 Vaccine ( season) 2024 Influenza Vaccine (FLU shot) (#1) 2024 11/18/2020, 10/14/2019, 08/30/2011, Additional history exists Cervical Cancer Screening 12/28/2024 Pap Smear 12/28/2024 12/28/2021, 0712/2017, 05/04/2015, Additional history exists DTap/Tdap Vaccines (8 - Td or Tdap) 10/14/2029 10/14/2019, 05/10/2010, 06/07/2005, Additional history exists Hepatitis B Vaccine Completed 07/20/1993, 02/02/1993, 1992 MENINGOCOCCAL (MENACTRA/MENVEO) Aged Out 12/18/2008 No longer eligible based on patient's age to complete this topic HPV (Gardasil) Vaccine Completed 9, 02/10/2009, 12/18/2008 Meningitis B Vaccine (Bexsero/Trumemba) Aged Out No longer eligible based on patient's age to complete this topic Pneumococcal Vaccine: Pediatrics (0 to 5 Years) and At-Risk Patients (6 to 18 Years and 19+ Years) Aged Out No longer eligib le based on patient's age to complete this topic documented as of this encounter Medical Devices Not on filedocumented as of this encounter Visit Diagnoses Diagnosis Encounter for supervision of normal in multigravida in third trimester- Primary HSV-1 (herpes simplex virus 1) infection Herpes simplex without mention of complication CROW (generalized anxiety disorder) Generalized anxiety disorder documented in this encounter Care Teams Bark Peeler Relationship Specialty Start Date End Date Jay Scott MD [address] [place] [address] [place] [phone] PCP - General Family Medicine 11/23/23 documented as of this encounter
--- OUTSIDE RECORDS SUMMARY | 2025-01-27 04:43 | External Medical Summary | Summary of Care ---
Author Name Unknown Organization [facility] Address [address] [facility] [place] [address] Phone [phone] Care Team Providers Care Butadiene Converter Utility Operator Name Role Phone Jay Scott MD Primary Care Provide r Reason for Visit * Reason Comments Return Visit Encounter Details Date Type Department Care Team (Late st Contact Info) Description 01/09/2025 3:45 PM EST Office Visit Gynecology/Obstetric s Elke Melendez [address] [place] [phone] Rosalia Levin PA-C [address] [place] [phone] Encounter for supervision of other normal , third trimester*; HSV-1 (herpes simplex virus 1) infection; CROW (generalized anxiety disorder) Allergies Active Allergy Reactions Criticality Noted Date Comments Bee Venom 01/28/2003 Sulfa Antibiotics Hives High 04/08/2013 documented as of this encounter (statuses as of 01/09/2025) Medications 28-0.8 MG Oral Tablet Take by [...] as of this encounter (statuses as of 01/09/2025) Active Problems Problem Noted Date Diagnosed Date [...] as of this encounter (statuses as of 01/09/2025) Resolved Problems Problem Noted Date Diagnosed Date Resolved Date , normal first 05/24/201904/21 Routine medical exam 10/19/2013 024 documented as of this encounter (statuses as of 01/09/2025) Immunizations Name Administration Dates Next Due DTP [...] money to get more. Never true 12/09/2024 [place] Depression Scale Answer Date Recorded [place] Depression Scale Total 0 01/09/2025 The thought [...] Sign Reading Time Taken Comments Blood Pressure 116/78 01/09/2025 3:37 PM EST Pulse - - Temperature - - Respiratory Rate - - Oxygen Saturation - - Inhaled Oxygen Concentration - - Weight 76.7 kg (169 lb) 01/09/2025 3:37 PM EST Height 165.1 cm (5' 5") 01/09/2025 3:37 PM EST Body Mass Index 28.12 01/09/2025 3:37 PM EST documented in this encounter Progress Notes * Rosalia Levin PA-C - 01/09/2025 3:41 PM EST Trey Gutierrez is a 34 year old female here for her routine OB appointment at 37w0d Her Estimated Date of Delivery: 01/30/25 REVIEW OF SYSTEMS She affirms movement. Denies vaginal bleeding, LOF, contractions, headaches, vision changes, chest pain, RUQ pain. [place] Depression Scale [place] Depression Scale Total: (Patient-Rptd) 0 [place] suicide question and score: Score of 3 = Yes, quite often. Score of 2 = Sometimes. Score of 1 = Hardly ever The thought of harming myself has occurred to me.: (Patient-Rptd) 0 PHYSICAL EXAM Filed Vitals: 01/09/25 1537 BP: 116/78 Weight: 76.7 kg (169 lb) Height: 1.651 m (5' 5") +FHT 120s Fundal height 37 cm Position: cephalic - confirmed on bedside U/S GBS collected today. Job Development Specialist Documentation Patient offered recreation supervisor and accepted. Name of recreation supervisor: Caryn Santana LPN. ASSESSMENT/PLAN Encounter for supervision of other normal , third trimester (Primary) - GROUP B STREP CULTURE/PCR; Future; Expected date: 01/09/2025 HSV-1 (herpes simplex virus 1) infection CROW (generalized anxiety disorder) Supervision of - labor precautions and kick counts reviewed RTO in 1 week Rosalia Levin PA-C 01/09/2025 documented in this encounter Nursing Notes * Caryn Camp LPN - 01/09/2025 3:42 PM EST 37w0d Gbs today documented in this encounter Plan of Treatment Upcoming Encounters Date Type Department Care Team (Late st Contact Info) Description 01/16/2025 3:45 PM EST Office Visit Gynecology/Obstetrics [facility] [address] [place] [phone] Rosalia Levin PA-C [address] [place] [phone] 04/15/2025 10:45 AM EDT Office Visit Dermatology [place] [place] [address] [facility] [place] [address] Parvez Maldonado MD [address] [facility] [place] [phone] 06/23/2025 6:20 PM EDT Office Visit Family Medicine [address] [phone] Jay Scott MD [address] [place] [address] [place] [phone] Pending Results Name Type Priority Associated Diagnoses Date /Time GROUP B STREP CULTURE/PCR Lab Routine Encounter for supervision of other normal , third trimester 01/09/2025 4:09 PM EST Scheduled Orders Name Type Priority Associated Diagnoses Orde r Schedule GROUP B STREP CULTURE/PCR Lab Routine Encounter for supervision of other normal , third trimester Expected: 01/09/2025, Expires: 01/09/2026 Health Maintenance Due Date Last Done Comments Depression Screening 05/14/2020 05/14/2019 HPV/Co-Test 2022 COVID-19 Vaccine ( season) 2024 Influenza Vaccine (FLU shot) (#1) 2024 11/18/2020, 10/14/2019, 08/30/2011, Additional history exists Cervical Cancer Screening 12/28/2024 Pap Smear 12/28/2024 12/28/2021, 07/12/2017, 05/04/2015, Additional history exists DTap/Tdap Vaccines (8 [...] Visit Diagnoses Diagnosis Encounter for supervision of other normal , third trimester- Primary HSV-1 (herpes simplex virus 1) infection Herpes simplex without mention of complication CROW (generalized anxiety disorder) Generalized anxiety disorder documented in this encounter Care Teams Butadiene Converter Utility Operator Relationship Specialty Start Date End Date Jay Scott MD [address] [place] [address] [place] [address] PCP - General Family Medicine 11/23/23 documented as of this encounter
--- OUTSIDE RECORDS SUMMARY | 2025-01-27 04:43 | External Medical Summary | Summary of Care ---
Author Name Unknown Organization [facility] Address [address] [facility] [place] [address] Phone [phone] Care Team Providers Care Molding Line Assistant Name Role Phone Jay Scott MD Primary Care Provide r Reason for Visit * Reason Onset Date Comments Follow Up 01/16/2025 Encounter Details Date Type Department Care Team (Late st Contact Info) Description 01/16/2025 Telephone Gynecology/Obstetrics [facility] [address] [place] [phone] Taina Davis PA-C [address] [place] [phone] Follow Up Allergies Active Allergy Reactions Criticality Noted Date Comments Bee Venom 01/28/2003 Sulfa Antibiotics Hives High 04/08/2013 documented as of this encounter (statuses as of 01/17/2025) Medications 28-0.8 MG Oral Tablet Take by [...] as of this encounter (statuses as of 01/17/2025) Active Problems Problem Noted Date Diagnosed Date [...] as of this encounter (statuses as of 01/17/2025) Resolved Problems Problem Noted Date Diagnosed Date Resolved Date , normal first 05/24/201904/21 Routine medical exam 10/19/2013 024 documented as of this encounter (statuses as of 01/17/2025) Immunizations Name Administration Dates Next Due HPV [...] money to get more. Never true 12/09/2024 [place] Depression Scale Answer Date Recorded [place] Depression Scale Total 0 01/09/2025 The thought [...] encounter Miscellaneous Notes * Telephone Encounter - Lety Sanchez OSA - 01/16/2025 4:05 PM EST Return in about 1 week (around 01/23/2025) for FATUMA. Unable to schedlue please contact patient documented in this encounter Plan of Treatment Upcoming Encounters Date Type Department Care Team (Late st Contact Info) Description 04/15/2025 10:45 AM EDT Office Visit Dermatology [facility] [address] [place] [address] Parvez Maldonado MD 200 [place] [address] 06/23/2025 6:20 PM EDT Office Visit Family Medicine [address] [phone] Jay Scott MD [address] [place] [address] [place] [address] Health Maintenance Due Date Last Done Comments [...] complete this topic HPV (Gardasil) Vaccine Completed , 02/10/2009, 12/18/2008 Meningitis B Vaccine (Bexsero/Trumemba) Aged [...] filedocumented as of this encounter Care Teams Molding Line Assistant Relationship Specialty Start Date End Date Jay Scott MD [address] [place] [address] [place] [address] PCP - General Family Medicine 11/23/23 documented as of this encounter
--- OUTSIDE RECORDS SUMMARY | 2025-01-27 04:43 | External Medical Summary | Summary of Care ---
Author Name Unknown Organization [facility] Address [address] [facility] [place] [address] Phone [phone] Care Team Providers Care Rn Telephonic Name Role Phone Jay Scott MD Primary Care Provide r Reason for Visit * Reason Comments Return Visit Encounter Details Date Type Department Care Team (Late st Contact Info) Description 12/09/2024 4:30 PM EST Office Visit Gynecology/Obstetric s Elke Melendez [address] [place] [address] Taina Davis PA-C [address] [place] [phone] Encounter for supervision of other normal , unspecified trimester*; HSV-1 (herpes simplex virus 1) infection; [...] 12/09/2024) Immunizations Name Administration Dates Next Due HPV [...] money to get more. Never true 12/09/2024 [place] Depression Scale Answer Date Recorded [place] Depression Scale Total 4 07/01/2024 The thought [...] Sign Reading Time Taken Comments Blood Pressure 126/84 12/09/2024 4:34 PM EST Pulse - - Temperature - - Respiratory Rate - - Oxygen Saturation - - Inhaled Oxygen Concentration - - Weight 74.4 kg (164 lb) 12/09/2024 4:34 PM EST Height 165.1 cm (5' 5") 12/09/2024 4:34 PM EST Body Mass Index 27.29 12/09/2024 4:34 PM EST documented in this encounter Progress Notes * Taina Davis PA-C - 12/09/2024 4:52 PM EST 32w4d No complaints. Denies VB, LOF, contractions. Baby is active. Would like to discuss delayed cord clamping, advised follow up with physician to discuss ahead of delivery. History of genital HSV, Valtrex suppression sent for her to start at 36 weeks RTC in 2 weeks Taina Davis PA-C documented in this encounter Nursing Notes * Caryn Camp LPN - 12/09/2024 4:36 PM EST 32w4d Denies concerns. documented in this encounter Plan of Treatment Upcoming Encounters Date Type Department Care Team (Late st Contact Info) Description 12/23/2024 11:30 AM EST Office Visit Gynecology/Obstetrics [address] [place] [address] Rachelle Post CRNP [address] [place] [address] 12/23/2024 2:20 PM EST Office Visit Dermatology [address] [place] [address] Rosalia Dove PA-C [address] [place] [address] [place] [address] 06/23/2025 6:20 PM EDT Office Visit Family Medicine [address] [place] [phone] Jay Scott MD [address] [place] [address] [place] [address] Health Maintenance Due Date Last Done Comments [...] for supervision of other normal , unspecified trimester- Primary HSV-1 (herpes simplex virus 1) infection Herpes simplex without mention of complication CROW (generalized anxiety disorder) Generalized anxiety disorder documented in this encounter Care Teams Rn Telephonic Relationship Specialty Start Date End Date Jay Scott MD [address] [place] [address] [place] [address] PCP - General Family Medicine 11/23/23 documented as of this encounter
--- OUTSIDE RECORDS SUMMARY | 2025-01-27 04:43 | External Medical Summary | Summary of Care ---
Author Name Unknown Organization [facility] Address [address] [facility] [place] [address] Phone [phone] Care Team Providers Care Lab Support Tech Name Role Phone Jay Scott MD Primary Care Provide r Reason for Visit * Reason Comments Return Visit Encounter Details Date Type Department Care Team (Late st Contact Info) Description 01/16/2025 3:45 PM EST Office Visit Gynecology/Obstetric s Elke Melendez [address] [place] [address] Rosalia Levin PA-C [address] [place] [address] Encounter for supervision of other normal , third trimester*; HSV-1 (herpes simplex virus 1) infection; CROW (generalized anxiety disorder) Allergies Active Allergy Reactions Criticality Noted Date Comments Bee Venom 01/28/2003 Sulfa Antibiotics Hives High 04/08/2013 documented as of this encounter (statuses as of 01/16/2025) Medications 28-0.8 MG Oral Tablet Take by [...] as of this encounter (statuses as of 01/16/2025) Active Problems Problem Noted Date Diagnosed Date Encounter for supervision of other normal , unspecified trimester 07/01/2024 G[place]ate psoriasis 02/13/2023 RCOW (generalized anxiety disorder) 12/28/2021 Overview (07/01/2024): Taking lexapro HSV-1 (herpes simplex virus 1) infection 015 Overview (05/24/2019): Valtrex 36 weeks Acne Estimated Date of Delivery Comme nts Yes 01/30/2025 Based on last me nstrual period of 04/25/2024 (Approximate) documented as of this encounter (statuses as of 01/16/2025) Resolved Problems Problem Noted Date Diagnosed Date Resolved Date , normal first 05/24/201904/21 Routine medical exam 10/19/2013 024 documented as of this encounter (statuses as of 01/16/2025) Immunizations Name Administration Dates Next Due DTP [...] money to get more. Never true 12/09/2024 [place] Depression Scale Answer Date Recorded [place] Depression Scale Total 0 01/09/2025 The thought [...] Sign Reading Time Taken Comments Blood Pressure 122/82 01/16/2025 3:34 PM EST Pulse - - Temperature - - Respiratory Rate - - Oxygen Saturation - - Inhaled Oxygen Concentration - - Weight 76.7 kg (169 lb) 01/16/2025 3:34 PM EST Height 165.1 cm (5' 5") 01/16/2025 3:34 PM EST Body Mass Index 28.12 01/16/2025 3:34 PM EST documented in this encounter Progress Notes * Rosalia Levin PA-C - 01/16/2025 3:40 PM EST Trey Gutierrez is a 34 year old female here for her routine OB appointment at 38w0d Her Estimated Date of Delivery: 01/30/25 REVIEW OF SYSTEMS She affirms movement. Denies vaginal bleeding, LOF, headaches, vision changes, chest pain, RUQ pain. + BH contractions, nothing regular or timeable. PHYSICAL EXAM Filed Vitals: 01/16/25 1534 BP: 122/82 Weight: 76.7 kg (169 lb) Height: 1.651 m (5' 5") +FHT 130s Fundal height 38 cm ASSESSMENT/PLAN Encounter for supervision of other normal , third trimester (Primary) HSV-1 (herpes simplex virus 1) infection CROW (generalized anxiety disorder) Supervision of - discussed recommendation for delivery by 42 weeks. Patient agreeable to scheduling IOL at this time. Patient provided with date, time, and phone number to call day of. - labor precautions and kick counts reviewed RTO in 1 week Rosalia Levin PA-C 01/16/2025 documented in this encounter Nursing Notes * Caryn Camp LPN - 01/16/2025 3:39 PM EST 38w0d Denies concerns documented in this encounter Plan of Treatment Upcoming Encounters Date Type Department Care Team (Late st Contact Info) Description 04/15/2025 10:45 AM EDT Office Visit Dermatology Sina Adam [place] [address] [facility] [place] [address] Parvez Maldonado MD 200 [facility] [place] [address] 06/23/2025 6:20 PM EDT Office Visit Family Medicine [address] [place] [phone] Jay Scott MD [address] [place] [address] [place] [address] Health Maintenance Due Date Last Done Comments [...] disorder documented in this encounter Care Teams Lab Support Tech Relationship Specialty Start Date End Date Jay Scott MD [address] [place] [address] [place] [address] PCP - General Family Medicine 11/23/23 documented as of this encounter
--- OUTSIDE RECORDS SUMMARY | 2025-01-27 04:43 | External Medical Summary | Summary of Care ---
Author Name Unknown Organization [facility] Address [address] [facility] [place] [address] Phone [phone] Care Team Providers Care Exterior Door Installer Name Role Phone Jay Scott MD Primary Care Provide r Reason for Visit * Reason Comments Return Visit Encounter Details Date Type Department Care Team (Late st Contact Info) Description 01/16/2025 3:45 PM EST Office Visit Gynecology/Obstetric s Elke Melendez [address] [place] [address] Rosalia Levin PA-C [address] [place] [address] Encounter for supervision of other normal , [...] money to get more. Never true 12/09/2024 [place] Depression Scale Answer Date Recorded [place] Depression Scale Total 0 01/09/2025 The thought [...] AM EDT Office Visit Dermatology Sina [place] [address] [facility] [place] [address] Parvez Maldonado MD 200 [facility] [place] [address] 06/23/2025 6:20 PM EDT Office Visit Family Medicine [address] [place] [phone] Jay Scott MD [address] [place] [address] [place] [address] Health Maintenance Due Date Last Done Comments [...] disorder documented in this encounter Care Teams Exterior Door Installer Relationship Specialty Start Date End Date Jay Scott MD [address] [place] [address] [place] [address] PCP - General Family Medicine 11/23/23 documented as of this encounter
--- OUTSIDE RECORDS SUMMARY | 2025-01-27 04:43 | External Medical Summary | Summary of Care ---
Author Name Unknown Organization [facility] Address [address] [facility] [place] [address] Phone [phone] Care Team Providers Care It Communications Specialist Name Role Phone Jay Scott MD Primary Care Provide r Reason for Visit * Reason Comments Outpatient Testing Encounter Details Date Type Department Care Team (Late st Contact Info) Description 11/11/2024 1:50 PM EST Laboratory [facility], [facility] [phone] [facility] [address] Normal , second trimester Allergies Active Allergy Reactions Criticality Noted Date Comments Bee Venom 01/28/2003 Sulfa Antibiotics Hives High 04/08/2013 documented as of this encounter (statuses as of 11/11/2024) Medications 28-0.8 MG Oral Tablet Take by mouth. Active Escitalopram Oxalate 5 MG Oral Tablet (Lexapro)Indicat ions:CROW (generalized anxiety disorder) Take 1 Tablet by mouth in the morning. In the morning.. 90 Tablet 3 10/18/2024 Active documented as of this encounter (statuses as of 11/11/2024) Active Problems Problem Noted Date Diagnosed Date [...] as of this encounter (statuses as of 11/11/2024) Resolved Problems Problem Noted Date Diagnosed Date Resolved Date , normal first 05/24/201904/21 Routine medical exam 10/19/2013 024 documented as of this encounter (statuses as of 11/11/2024) Immunizations Name Administration Dates Next Due HPV [...] Answer Date Recorded PHQ-2 Score 0 05/14/2019 [place] Depression Scale Answer Date Recorded [place] Depression Scale Total 4 07/01/2024 The thought of harming myself has occurred to me . Never 07/01/2024 Estimated Date of Delivery Comme nts Yes 01/30/2025 Based on last me nstrual period of 04/25/2024 (Approximate) Sex and Gender Information Value Date Recorded Sex Assigned at Female 06/18/2024 2:00 PM EDT Legal Sex Female 7:15 AM EST Gender Identity Female 06/18/2024 2:00 PM EDT Sexual Orientation Straight 06/18/2024 2: 00 PM EDT documented as of this encounter Plan of Treatment Upcoming Encounters Date Type Department Care Team (Late st Contact Info) Description 11/25/2024 3:15 PM EST Office Visit Gynecology/Obstetrics [address] [place] [address] Rachelle Post CRNP [address] [place] [phone] 12/23/2024 2:20 PM EST Office Visit Dermatology [address] [place] [address] Rosalia Dove PA-C [address] [place] [address] [place] [address] 06/23/2025 6:20 PM EDT Office Visit Family Medicine [address] [place] [phone] Jay Scott MD [address] [place] [address] [place] [address] Pending Results Name Type Priority Associated Diagnoses Date /Time CBC WITH WBC DIFFERENTIAL AND ANEMIA REFLEX WORKUP Lab Routine Normal , second trimester 11/11/2024 2:49 PM EST SYPHILIS ANTIBODY SCREEN WITH REFLEX TO RPR Lab Routine Normal , second trimester 11/11/2024 2:49 PM EST 50-G GESTATIONAL GLUCOSE, 1 HOUR Lab Routine Normal , second trimester 11/11/2024 2:49 PM EST ANEMIA REFLEX CHEMISTRY HOLD Lab Routine Normal , second trimester 11/11/2024 2:49 PM EST SYPHILIS ANTIBODY SCREEN Lab Routine Normal , second trimester 11/11/2024 2:49 PM EST RETICULOCYTE PANEL Lab Routine Normal , second trimester 11/11/2024 2:49 PM EST Health Maintenance Due Date Last Done Comments [...] 5 Years) and At-Risk Patients (6 to 64 Years) Aged Out No longer eligible based on patient's age to complete this topic documented as of this encounter Medical Devices Not on filedocumented as of this encounter Procedures Procedure Name Priority Date/Time Associated Diagnosis Comments ANEMIA CBC Routine 11/11/2024 2:49 PM EST Normal , second trimester DIFFERENTIAL, AUTOMATED Routine 11/11/2024 2:49 PM EST Normal , second trimester documented in this encounter Results * (ABNORMAL) DIFFERENTIAL, AUTOMATED (11/11/2024 2:49 PM EST) WBC 8.61 4.00 - 10.80 K/uL 11/11/2024 3:01 PM EST [facility] Neutrophils % 79.0(H) 40.0 - 75.0 % 11/11/2024 3:01 PM EST [facility] Lymphocytes % 15.4(L) 18.0 - 42.0 % 11/11/2024 3:01 PM EST [facility] Monocytes % 5.2 1.0 - 11.0 % 11/11/2024 3:01 PM EST [facility] Eosinophils % 0.3 0.0 - 6.0 % 11/11/2024 3:01 PM EST [facility] Basophils % 0.1 0.0 - 2.0 % 11/11/2024 3:01 PM EST [facility] Absolute Neutrophils 6.79 1.80 - 7.70 K/uL 11/11/2024 3:01 PM EST [facility] Absolute Lymphocytes 1.33 1.00 - 4.80 K/ul 11/11/2024 3:01 PM EST [facility] [place] [facility] Absolute Monocytes 0.45 0.00 - 1.10 K/uL 11/11/2024 3:01 PM EST [facility] [place] [facility] Absolute Eosinophils 0.03 0.00 - 0.70 K/uL 11/11/2024 3:01 PM EST [facility] Absolute Basophils 0.01 0.00 - 0.20 K/uL 11/11/2024 3:01 PM EST [facility] Blood Venous blood specimen / Unknown Venipuncture / Unknown 11/11/2024 2:49 PM EST 11/11/2024 2:49 PM EST us Rachelle VICENTE LAB BLOOD ORDERABLES Final Re sult [facility] [place] [address] * (ABNORMAL) ANEMIA CBC (11/11/2024 2:49 PM EST) WBC 8.61 4.00 - 10.80 K/uL 11/11/2024 3:01 PM EST [facility]10 RBC 3.54 3.85 - 5.15 M/uL 11/11/2024 3:01 PM EST [facility]10 HGB 11.5(L) 12.0 - 15.3 g/dL 11/11/2024 3:01 PM EST [facility] Comment: Anemia reflex testing triggers on a HGB < 12.0 for Females and HGB < 13.0 for Males in accordance with the WHO Anemia Guidelines Anemia reflex testing triggers on a HGB < 12.0 for Females and HGB < 13.0 for Males in accordance with the WHO Anemia Guidelines HCT 34.0(L) 36.0 - 45.2 % 11/11/2024 3:01 PM EST [facility] MCV 96.0 81.5 - 97.5 fL 11/11/2024 3:01 PM EST [facility] MCH 32.5 27.0 - 34.0 pg 11/11/2024 3:01 PM EST [facility] MCHC 33.8 32.0 - 36.0 g/dL 11/11/2024 3:01 PM EST [facility] [place] [facility] RDW 12.5 11.5 - 15.5 % 11/11/2024 3:01 PM EST [facility]10 PLT 210 140 - 400 K/uL 11/11/2024 3:01 PM EST [facility] MPV 10.3 6.6 - 11.1 fL 11/11/2024 3:01 PM EST [facility] Blood Venous blood specimen / Unknown Venipuncture / Unknown 11/11/2024 2:49 PM EST 11/11/2024 2:49 PM EST Rachelle VICENTE LAB BLOOD ORDERABLES Final Re sult [facility]10 [address] [place] [phone] documented in this encounter Visit Diagnoses Diagnosis Normal , second trimester documented in this encounter Care Teams It Communications Specialist Relationship Specialty Start Date End Date Jay Scott MD [address] [place] [address] [place] [address] PCP - General Family Medicine 11/23/23 documented as of this encounter
--- OUTSIDE RECORDS SUMMARY | 2025-01-27 04:43 | External Medical Summary | Summary of Care ---
Author Name Unknown Organization [facility] Address [address] [facility] [place] [address] Phone [phone] Care Team Providers Care Kaiako K[place] Ma[place] Name Role Phone Jay Scott MD Primary Care Provide r Reason for Visit * Reason Comments Return Visit Encounter Details Date Type Department Care Team (Late st Contact Info) Description 12/23/2024 1:45 PM EST Office Visit Gynecology/Obstetric s [address] [place] [address] Rachelle Post CRNP [address] [place] [address] Encounter for supervision of other normal , third trimester*; HSV-1 (herpes simplex virus 1) infection; CROW (generalized anxiety disorder) Allergies Active Allergy Reactions Criticality Noted Date Comments Bee Venom 01/28/2003 Sulfa Antibiotics Hives High 04/08/2013 documented as of this encounter (statuses as of 2024) Medications 28-0.8 MG Oral Tablet Take by [...] as of this encounter (statuses as of 2024) Active Problems Problem Noted Date Diagnosed Date [...] as of this encounter (statuses as of 2024) Resolved Problems Problem Noted Date Diagnosed Date Resolved Date , normal first 05/24/201904/21 Routine medical exam 10/19/2013 024 documented as of this encounter (statuses as of 2024) Immunizations Name Administration Dates Next Due HPV [...] money to get more. Never true 12/09/2024 [place] Depression Scale Answer Date Recorded [place] Depression Scale Total 4 12/09/2024 The thought of harming myself has occurred to me . Never 12/09/2024 Childcare Answer Date Recorded Do you feel [...] Sign Reading Time Taken Comments Blood Pressure 124/68 12/23/2024 1:48 PM EST Pulse - - Temperature - - Respiratory Rate - - Oxygen Saturation - - Inhaled Oxygen Concentration - - Weight 74.8 kg (165 lb) 12/23/2024 1:48 PM EST Height 165.1 cm (5' 5") 12/23/2024 1:48 PM EST Body Mass Index 27.46 12/23/2024 1:48 PM EST documented in this encounter Progress Notes * Rachelle Post CRNP - 12/23/2024 2:07 PM EST 34w4d Daughter recently sick, getting sick now. Asking what she can take if she gets sick. No other issues. Baby is active. Denies contractions, bleeding, LOF. Picking valtrex up today. CINTHIA Dasilva * Amada Brand LPN - 12/23/2024 1:48 PM EST 34w4d Discuss what to take if she gets sick documented in this encounter Plan of Treatment Upcoming Encounters Date Type Department Care Team (Late st Contact Info) Description 01/09/2025 3:45 PM EST [facility] [address] [place] [address] Rosalia Levin PA-C [address] [place] [address] 04/15/2025 10:45 AM EDT Office Visit [facility] [facility] [place] [address] Parvez Maldonado MD 200 [facility] [place] [address] 06/23/2025 6:20 PM EDT Office Visit Family Medicine [address] [place] [phone] Jay Scott MD [address] [place] [address] [place] [address] Health Maintenance Due Date Last Done Comments Depression Screening 05/14/2020 05/14/2019 HPV/Co-Test 2022 COVID-19 Vaccine ( season) 2024 Influenza Vaccine (FLU shot) (#1) 2024 11/18/2020, 10/14/2019, 08/30/2011, Additional history exists Cervical Cancer Screening 12/28/2024 Pap Smear 12/28/2024 12/28/2021, 07/0 12/2017, 05/04/2015, Additional history exists DTap/Tdap Vaccines [...] disorder documented in this encounter Care Teams Kaiako [place] Maori Relationship Specialty Start Date End Date Jay Scott MD [address] [place] [address] [place] [address] PCP - General Family Medicine 11/23/23 documented as of this encounter
--- OUTSIDE RECORDS SUMMARY | 2025-01-27 04:43 | External Medical Summary | Summary of Care ---
Author Name Unknown Organization [facility] [address] [facility] [address] Phone [phone] Care Team Providers Care Chief Commercial Officer Name Role Phone Jay Scott MD Primary Care Provide r Reason for Visit * Reason Comments Return Visit Encounter Details Date Type Department Care Team (Late st Contact Info) Description 11/25/2024 3:15 PM EST Office Visit Gynecology/Obstetric s [address] [place] [address] Rachelle Post CRNP [address] [place] [address] Encounter for supervision of other normal , unspecified trimester*; HSV-1 (herpes simplex virus 1) infection; CROW (generalized anxiety disorder) Allergies Active Allergy Reactions Criticality Noted Date Comments Bee Venom 01/28/2003 Sulfa Antibiotics Hives High 04/08/2013 documented as of this encounter (statuses as of 11/25/2024) Medications 28-0.8 MG Oral Tablet Take by mouth. Active Escitalopram Oxalate 5 MG Oral Tablet (Lexapro)Indica tions:CROW (generalized anxiety disorder) Take 1 Tablet by mouth in the morning. In the morning.. 90 Tablet 3 10/18/2024 Active Breast Pump Dispense double electric breast pump. Dx:Z39.1 1 Each 11/25/2024 Active documented as of this encounter (statuses as of 11/25/2024) Active Problems Problem Noted Date Diagnosed Date [...] as of this encounter (statuses as of 11/25/2024) Resolved Problems Problem Noted Date Diagnosed Date Resolved Date , normal first 05/24/201904/21 Routine medical exam 10/19/2013 024 documented as of this encounter (statuses as of 11/25/2024) Immunizations Name Administration Dates Next Due HPV [...] Answer Date Recorded PHQ-2 Score 0 05/14/2019 [place] Depression Scale Answer Date Recorded [place] Depression Scale Total 4 07/01/2024 The thought [...] Sign Reading Time Taken Comments Blood Pressure 118/70 11/25/2024 3:06 PM EST Pulse - - Temperature - - Respiratory Rate - - Oxygen Saturation - - Inhaled Oxygen Concentration - - Weight 73.9 kg (163 lb) 11/25/2024 3:06 PM EST Height 165.1 cm (5' 5") 11/25/2024 3:06 PM EST Body Mass Index 27.12 11/25/2024 3:06 PM EST documented in this encounter Progress Notes * Rachelle Post CRNP - 11/25/2024 3:17 PM EST 30w4d No concerns. Baby is active. No contractions, bleeding, LOF. CINTHIA Dasilva * Amada Brand LPN - 11/25/2024 3:06 PM EST 30w4d Needs breast pump ok with [facility] documented in this encounter Plan of Treatment Upcoming Encounters Date Type Department Care Team (Late st Contact Info) Description 12/09/2024 4:30 PM EST Office Visit Gynecology/Obstetrics Elke Melendez [address] [place] [address] Taina Davis PA-C [address] [place] [phone] 12/23/2024 11:30 AM EST Office Visit Gynecology/Obstetrics [address] [place] [address] Rachelle Post CRNP [address] [place] [phone] 12/23/2024 2:20 PM EST Office Visit Dermatology [address] [place] [address] Rosalia Dove PA-C [address] [place] [address] [place] [address] 06/23/2025 6:20 PM EDT Office Visit Family Medicine [address] [place] [phone] Jay Scott MD [address] [place] [address] [place] [address] Health Maintenance Due Date Last Done Comments [...] disorder documented in this encounter Care Teams Chief Commercial Officer Relationship Specialty Start Date End Date Jay Scott MD [address] [place] [address] [place] [address] PCP - General Family Medicine 11/23/23 documented as of this encounter
--- OUTSIDE RECORDS SUMMARY | 2025-01-27 04:43 | External Medical Summary | Summary of Care ---
Author Name Unknown Organization [facility] Address [address] [facility] [place] [address] Phone [phone] Care Team Providers Care Repairer Handtools Name Role Phone Jay Scott MD Primary Care Provide r Reason for Visit * Reason Onset Date Comments Forms Request 12/09/2024 Encounter Details Date Type Department Care Team (Late st Contact Info) Description 12/09/2024 Telephone Gynecology/Obstetrics [facility] [address] [place] [phone] Taina Davis PA-C [address] [place] [phone] Forms Request Allergies Active Allergy Reactions Criticality Noted Date Comments Bee Venom 01/28/2003 Sulfa Antibiotics Hives High 04/08/2013 documented as of this encounter (statuses as of 12/11/2024) Medications 28-0.8 MG Oral Tablet Take by [...] as of this encounter (statuses as of 12/11/2024) Active Problems Problem Noted Date Diagnosed Date [...] as of this encounter (statuses as of 12/11/2024) Resolved Problems Problem Noted Date Diagnosed Date Resolved Date , normal first 05/24/201904/21 Routine medical exam 10/19/2013 024 documented as of this encounter (statuses as of 12/11/2024) Immunizations Name Administration Dates Next Due DTP [...] money to get more. Never true 12/09/2024 [place] Depression Scale Answer Date Recorded [place] Depression Scale Total 4 12/09/2024 The thought [...] Telephone Encounter - Caryn Camp LPN - 12/11/2024 1:15 PM EST Copies in scan bin, original in triage for berry picker. * Telephone Encounter - Caryn Camp LPN - 12/09/2024 5:05 PM EST On Taina's desk for signature. * Telephone Encounter - Caryn Camp LPN - 12/09/2024 4:57 PM EST Pt dropped of FMLA. On Caryn's desk. documented in this encounter Plan of Treatment Upcoming Encounters Date Type Department Care Team (Late st Contact Info) Description 12/23/2024 11:30 AM EST Office Visit Gynecology/Obstetrics [address] [place] [address] Rachelle Post CRNP [address] [place] [phone] 12/23/2024 2:20 PM EST Office Visit Dermatology [address] [place] [address] Rosalia Dove PA-C [address] [place] [address] [place] [address] 06/23/2025 6:20 PM EDT Office Visit Family Medicine [address] [place] [phone] Jay Scott MD [address] [place] [address] [place] [address] Health Maintenance Due Date Last Done Comments [...] filedocumented as of this encounter Care Teams Repairer Handtools Relationship Specialty Start Date End Date Jay Scott MD [address] [place] [address] [place] [phone] PCP - General Family Medicine 11/23/23 documented as of this encounter
--- OUTSIDE RECORDS SUMMARY | 2025-01-27 04:43 | External Medical Summary | Summary of Care ---
Author Name Unknown Organization [facility] Address [address] [facility] [place] [address] Phone [phone] Care Team Providers Care Yard Hand Name Role Phone Jay Scott MD Primary Care Provide r Reason for Visit * Reason Comments Return Visit Encounter Details Date Type Department Care Team (Late st Contact Info) Description 01/09/2025 3:45 PM EST Office Visit Gynecology/Obstetric s [facility] [address] [place] [phone] Rosalia Levin PA-C [address] [place] [phone] Encounter for supervision of other normal , [...] money to get more. Never true 12/09/2024 [place] Depression Scale Answer Date Recorded [place] Depression Scale Total 0 01/09/2025 The thought [...] headaches, vision changes, chest pain, RUQ pain. [place] Depression Scale [place] Depression Scale Total: (Patient-Rptd) 0 [place] suicide question and score: Score of 3 [...] confirmed on bedside U/S GBS collected today. Mortgage Manager Documentation Patient offered technologies division chair and accepted. Name of technologies division chair: Caryn Santana LPN. ASSESSMENT/PLAN Encounter for supervision [...] 01/16/2025 3:45 PM EST Office Visit Gynecology/Obstetrics [facility] [address] [place] [address] Rosalia Levin PA-C [address] [place] [address] 04/15/2025 10:45 AM EDT Office Visit Dermatology [place] [facility] [place] [address] Parvez Maldonado MD [address] [facility] [place] [address] 06/23/2025 6:20 PM EDT Office Visit Family Medicine [address] [phone] Jay Scott MD [address] [place] [address] [place] [phone] Pending Results Name Type Priority Associated Diagnoses [...] disorder documented in this encounter Care Teams Yard Hand Relationship Specialty Start Date End Date Jay Scott MD [address] [place] [address] [place] [address] PCP - General Family Medicine 11/23/23 documented as of this encounter
--- OUTSIDE RECORDS SUMMARY | 2025-01-27 04:43 | External Medical Summary | Summary of Care ---
Author Name Unknown Organization [facility] Address [address] [facility] [place] [address] Phone [phone] Care Team Providers Care Special Education Resource Room Teacher Name Role Phone Jay Scott MD Primary Care Provide r Reason for Visit * Reason Onset Date Comments Forms Request 12/09/2024 Encounter Details Date Type Department Care Team (Late st Contact Info) Description 12/09/2024 Telephone Gynecology/Obstetrics [facility] [address] [place] [address] Taina Davis PA-C [address] [place] [phone] Forms Request Allergies Active Allergy Reactions Criticality [...] money to get more. Never true 12/09/2024 [place] Depression Scale Answer Date Recorded [place] Depression Scale Total 4 07/01/2024 The thought [...] 12/23/2024 11:30 AM EST Office Visit Gynecology/Obstetrics [address] [place] [address] Rachelle Post CRNP [address] [place] [phone] 12/23/2024 2:20 PM EST Office Visit Dermatology [address] [place] [address] Rosalia Dove PA-C [address] [place] [address] [place] [address] 06/23/2025 6:20 PM EDT Office Visit Family Medicine [address] [place] [phone] Jay Scott MD [address] [place] [address] [place] [address] Health Maintenance Due Date Last Done Comments [...] filedocumented as of this encounter Care Teams Special Education Resource Room Teacher Relationship Specialty Start Date End Date Jay Scott MD [address] [place] [address] [place] [phone] PCP - General Family Medicine 11/23/23 documented as of this encounter
--- OUTSIDE RECORDS SUMMARY | 2025-01-27 04:44 | External Medical Summary | Summary of Care ---
Author Name Unknown Organization [facility] Address [address] [facility] [place] [address] Phone [phone] Care Team Providers Care Director Of [facility] Name Role Phone Jay Scott MD Primary Care Provide r Reason for Visit * Reason Comments Return Visit Encounter Details Date Type Department Care Team (Late st Contact Info) Description 08/26/2024 3:15 PM EDT Office Visit Gynecology/Obstetric s [address] [place] [address] Rachelle Post CRNP [address] [place] [phone] Encounter for supervision of other normal in second trimester*; HSV-1 (herpes simplex virus 1) infection; CROW (generalized anxiety disorder) Allergies Active Allergy Reactions Criticality Noted Date Comments Bee Venom 01/28/2003 Sulfa Antibiotics Hives High 04/08/2013 documented as of this encounter (statuses as of 08/26/2024) Medications Medication Sig Dispensed Refills Start Date End Date Status Escitalopram Oxalate 5 MG Oral Tablet (Lexapro)Indications: CROW (generalized anxiety disorder) Take 1 Tablet by mouth in the morning. In the morning.. 90 Tablet 1 06/11/2024 Active 28-0.8 MG Oral Tablet Take by mouth. 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 CROW (generalized anxiety disorder) 12/28/2021 Overview: Taking lexapro HSV-1 (herpes simplex virus 1) infection 015 Overview: Valtrex 36 weeks Acne Estimated Date of Delivery Comme nts Yes 01/30/2025 Based on last me nstrual period of 04/25/2024 (Approximate) documented as of this encounter (statuses as of 08/26/2024) Resolved Problems Problem Noted Date Diagnosed Date Resolved Date , normal first 05/24/201904/21 Routine medical exam 10/19/2013 024 documented as of this encounter (statuses as of 08/26/2024) Immunizations Name Administration Dates Next Due HPV [...] Answer Date Recorded PHQ-2 Score 0 05/14/2019 [place] Depression Scale Answer Date Recorded [place] Depression Scale Total 4 07/01/2024 The thought of harming myself has occurred to me . Never 07/01/2024 Utilities Answer Date Recorded Do you have trouble paying y our heating, water, or electric bill? (Adult - for ages 18 years and over) Not on file 05/07/2024 Is your family able to pay t he heat, water, or electric bill? (Household - for ages 0-17 years) Not on file 05/07/2024 Does your family have access to good internet? (Household - for ages 0-17 years) Not on file 05/07/2024 Social Connections Answer Date Recorded How often do you feel lonely or isolated from those around you? (Adult - for ages 18 years and over) Not on file 05/07/2024 Estimated Date of Delivery Comme nts Yes 01/30/2025 Based on last me nstrual period of 04/25/2024 (Approximate) Sex and Gender Information Value Date Recorded Sex Assigned at Female 06/18/2024 2:00 PM EDT Gender Identity Female 06/18/2024 2:00 PM EDT Sexual Orientation Straight 06/18/2024 2: 00 PM EDT Job Start Date Occupation Industry Not on file Not on file Not on file documented as of this encounter Last Filed Vital Signs Vital Sign Reading Time Taken Comments Blood Pressure 116/68 08/26/2024 3:15 PM EDT Pulse - - Temperature - - Respiratory Rate - - Oxygen Saturation - - Inhaled Oxygen Concentration - - Weight 67 kg (147 lb 11.3 oz) 08/26/2024 3:15 PM EDT Height - - Body Mass Index 24.58 07/29/2024 3:10 PM EDT documented in this encounter Progress Notes * Rachelle Post CRNP - 08/26/2024 3:30 PM EDT 17w4d No concerns. Has not felt any FM yet. No bleeding or LOF. MSAFP today. Anatomy u/s with next visit. CINTHIA Dasilva * Amada Brand LPN - 08/26/2024 3:15 PM EDT 17w4d Denies any concerns documented in this encounter Plan of Treatment Upcoming Encounters Date Type Department Care Team (Late st Contact Info) Description 09/17/2024 12:30 PM EDT Imaging Radiology [address] [place] [address] 09/30/2024 3:15 PM EST Office Visit Gynecology/Obstetrics [address] [place] [address] Rachelle Post CRNP [address] [place] [address] 10/18/2024 4:00 PM EST Office Visit Family Medicine [address] [place] [phone] Jay Scott MD [address] [place] [address] [place] [address] 10/28/2024 3:15 PM EST Office Visit Gynecology/Obstetrics [address] [place] [address] Rachelle Post CRNP [address] [place] [phone] 11/11/2024 10:00 AM EST Office Visit Gynecology/Obstetrics [facility] [address] [place] [address] Rachelle Post CRNP [address] [place] [address] 11/25/2024 3:15 PM EST Office Visit Gynecology/Obstetrics [address] [place] [address] Rachelle Post CRNP [address] [place] [address] 12/23/2024 2:20 PM EST Office Visit Dermatology [address] [place] [address] Rosalia Dove PA-C [address] [place] [address] [place] [address] 06/23/2025 6:20 PM EDT Office Visit Family Medicine [address] [place] [phone] Jay Scott MD [address] [place] [address] [place] [address] Pending Results Name Type Priority Associated Diagnoses Date /Time MATERNAL SERUM AFP Lab Routine Encounter for supervision of other normal in second trimester 08/26/2024 3:36 PM EDT Scheduled Orders Name Type Priority Associated Diagnoses Orde r Schedule US PREG SINGLE/1ST GEST, 14 WEEKS OR LATER Medical Imaging Routine Encounter for supervision of other normal in second trimester Expected: 09/09/2024 (Approximate), Expires: 09/26/2025 Health Maintenance Due Date Last Done Comments [...] Diagnosis Encounter for supervision of other normal in second trimester- Primary HSV-1 (herpes simplex virus 1) infection Herpes simplex without mention of complication CROW (generalized anxiety disorder) Generalized anxiety disorder documented in this encounter Care Teams Director Of The [employer] [facility] Relationship Specialty Start Date End Date Jay Scott MD [address] [place] [address] [place] [phone] PCP - General Family Medicine 11/23/23 documented as of this encounter
--- OUTSIDE RECORDS SUMMARY | 2025-01-27 04:44 | External Medical Summary ---
Author Name Unknown Address Unknown Organization K01[place] [place] [address] [place] [address] Laboratory Report Ordering Provider Test Date Status LAMAR JOHNSON 11/11/2024 14:49:56 Final Observation Date Value Abnormality Reference (Units ) Status Folic Acid 11/11/2024 14:49:56 >20.0 >4.5 (ng/ mL) Final Performing Location LAB[facility]ATORY [facility] - [address] [place] [address]
--- OUTSIDE RECORDS SUMMARY | 2025-01-27 04:44 | External Medical Summary | Summary of Care ---
Author Name Unknown Organization [facility] Address [address] [place] [address] Phone [phone] Care Team Providers Care Cloth Spreader Name Role Phone Jay Scott MD Primary Care Provide r Reason for Visit * Reason Comments Return Visit Yearly, no new yvette rns. Encounter Details Date Type Department Care Team (Late st Contact Info) Description 10/18/2024 4:00 PM EST Office Visit Family Medicine [address] [place] [phone] Jay Scott MD [address] [place] [address] [place] [address] Routine medical exam*; CROW (generalized anxiety disorder) Allergies Active Allergy Reactions Criticality Noted Date Comments Bee Venom 01/28/2003 Sulfa Antibiotics Hives High 04/08/2013 documented as of this encounter (statuses as of 10/18/2024) Medications 28-0.8 MG Oral Tablet Take by mouth. Active Escitalopram Oxalate 5 MG Oral Tablet (Lexapro)Indica tions:CROW (generalized anxiety disorder) Take 1 Tablet by mouth in the morning. In the morning.. 90 Tablet 3 4 Active Escitalopram Oxalate 5 MG Oral Tablet (Lexapro)Indica tions:CROW (generalized anxiety disorder) Take 1 Tablet by mouth in the morning. In the morning.. 90 Tablet 1 4 10/18/20 24 Discontinu ed(Refill) documented as of this encounter (statuses as of 10/18/2024) Active Problems Problem Noted Date Diagnosed Date [...] as of this encounter (statuses as of 10/18/2024) Resolved Problems Problem Noted Date Diagnosed Date Resolved Date , normal first 05/24/201904/21 Routine medical exam 10/19/2013 024 documented as of this encounter (statuses as of 10/18/2024) Immunizations Name Administration Dates Next Due HPV [...] Answer Date Recorded PHQ-2 Score 0 05/14/2019 [place] Depression Scale Answer Date Recorded [place] Depression Scale Total 4 07/01/2024 The thought [...] Sign Reading Time Taken Comments Blood Pressure 130/78 10/18/2024 4:06 PM EST Pulse 66 10/18/2024 4:06 PM EST Temperature 35.9 C (96.6 F) 10/18/2024 4:06 PM ES T Respiratory Rate - - Oxygen Saturation 99% 10/18/2024 4:06 PM EST Inhaled Oxygen Concentration - - Weight 71.8 kg (158 lb 3.2 oz) 10/18/2024 4:06 P M EST Height - - Body Mass Index 26.33 09/30/2024 3:13 PM EST documented in this encounter Progress Notes * Jay Scott MD - 10/18/2024 4:06 PM EST Chief complaint: Trey Gutierrez is a 33 year old female who presents for a complete annual physical. History of Present Illness: Brief Clinical History Ms. Gutierrez is a 33 year old female last seen in Family Medicine [facility] on 06/11/2024 by Hever Durbin She has a h/o the following chronic conditions indicated on the problem list: Chronic Conditions None Following with OB for normal at around 25 weeks. Doing well. Moods have been good with Lexapro. Denies side effects. Declines flu vaccine. Past Medical History: Diagnosis Date Acne Generalized anxiety disorder HSV-1 (herpes simplex virus 1) infection 05/20/2015 in genital area from cold sore Past Surgical History: Procedure Laterality Date INFORMATION 03/2019 bengn cyst removed from head Current Outpatient Medications Medication Sig Dispense Refill Escitalopram Oxalate 5 MG Oral Tablet (Lexapro) Take 1 Tablet by mouth in the morning. In the morning.. 90 Tablet 1 28-0.8 MG Oral Tablet Take by mouth. No current facility-administered medications for this visit. Review of patient's allergies indicates: Allergen Reactions Sulfa Antibiotics Hives Bee Venom Social History Socioeconomic History Marital status: Spouse name: Not on file Number of children: Not on file Years of education: Not on file Highest education level: Not on file Occupational History Not on file Tobacco Use Smoking status: Never Smokeless tobacco: Never Substance and Sexual Activity Alcohol use: No Drug use: No Sexual activity: Yes Partners: Male Other Topics Concern Not on file Social History Narrative Not on file Social Needs Financial Resource Strain: Not on file Food Insecurity: Not on file Transportation Needs: Not on file Social Connections: Not on file Housing Stability: Not on file Family History Problem Relation Name Age of Onset Other (Hyperlipidemia) Mother Other (Hyperlipidemia) Father No Past Hx Sister No Past Hx Sister No Past Hx Sister Breast Cancer Grandmother (Maternal) Alzheimer's disease Grandfather (Maternal) No Known Problems Grandmother (Paternal) No Known Problems Grandfather (Paternal) Review Of Systems: Skin: pt denies, new or changing moles, pigmentation change, rash, scaling, itching, bruising, lumps or bumps, hair changes, nail changes Eyes: negative Ears/Nose/Throat: pt denies:, deafness, tinnitus, vertigo, frequent URI's, sinus trouble Respiratory: pt denies:, cough, sputum, pneumonia or bronchitis, asthma, wheezing, and dyspnea on exertion Cardiovascular: pt denies:, palpitations, tachycardia, irregular heart beat, hypertension, chest pain, exertional chest pain or pressure, paroxysmal nocturnal dyspnea, and lower extremity edema Gastrointestinal: pt. denies:, abdominal pain, bloating or excess gas, dysphagia, nausea, heartburn, blood in stool or black stools, constipation or change in bowel habits, diarrhea Genitourinary: pt denies:, nocturia, dysuria, and frequency Musculoskeletal: pt denies significant joint pain or stiffness Neurologic: pt denies:, headaches, syncope, and seizures Psychiatric: + anxiety controlled with Lexapro Hematologic/Lymphatic/Immunologic: pt denies:, recurrent infections, immunodeficiency, anemia, bruising, bleeding disorder, fever, and weight loss Endocrine: pt denies:, thyroid disorder, cold intolerance, heat intolerance, and diabetes Gynecologic: Patient's last menstrual period was 04/25/2024 (approximate). Patient is ., Denies: vaginal discharge, vulvar itching, dysparenia, breast pain, new nodules, and nipple discharge PHYSICAL EXAMINATION: Pulse 66 | Temp 96.6 F (35.9 C) (Infrared ) | Wt 158 lb 3.2 oz (71.8 kg) | LMP 04/25/2024 (Approximate) | SpO2 99% | BMI 26.33 kg/m | BSA 1.81 m General appearance - healthy, alert, no distress, cooperative, comfortable Skin - Skin color, texture, turgor normal. No rashes or lesions Head - No masses, lesions, tenderness or abnormalities. Eyes - negative, Conjunctivae and corneas clear. PERRL, EOM's intact. Ears - External ears normal. Canals clear. TM's normal Nose/Sinuses - Nares normal. Septum midline. Mucosa normal. No drainage. Oropharynx - Lips, mucosa, and tongue normal. Teeth and gums normal. Oropharynx clear Neck - neck supple, no adenopathy, thyroid symmetric, normal size Back - Back symmetric, no curvature. ROM normal., No CVA tenderness Lungs - Lungs clear to auscultation Heart - RRR. No murmurs, clicks or rubs Abdomen - +gravid Extremities - No deformities, edema, or skin discoloration Peripheral pulses - negative, radial=2/4 Neuro - Gait normal. Reflexes normal and symmetric., Sensation grossly normal, power is 5/5, cranial nerves II through XII are intact ASSESSMENT/PLAN: Well Adult Female Exam Routine medical exam (Primary) CROW (generalized anxiety disorder)--controlled with Lexapro 5 mg daily - Escitalopram Oxalate 5 MG Oral Tablet (Lexapro); Take 1 Tablet by mouth in the morning. In the morning.. Patient has been verbally educated on the need or importance of Cervical Cancer Screening and Flu Vaccine Follow Up 1 Year Anticipatory Guidance: Discussed below: Adult Anticipatory Guidance Ages 18 - 64 years: Diet: Encouraged a diet high in fruits, vegetables,grains and foliate supplementation. Limit sodium and fat content. Increase fiber and calcium intake. Exercise: Encouraged regular exercise including cardiovascular, resistance and strength training. Self- Examinations: Female: Breast and Skin Injury Prevention: Domestic violence, car safety, safety helmet use, smoke detector placement and usage, occupational health and hazards of smoking near bedding and upholstery. documented in this encounter Nursing Notes * Monty Jordan CMA - 10/18/2024 4:05 PM EST The patient has been properly identified by confirmation of name and date of . Chief Complaint Patient presents with Return Visit Yearly, no new concerns. documented in this encounter Plan of Treatment Upcoming Encounters Date Type Department Care Team (Late st Contact Info) Description 10/28/2024 3:15 PM EST Office Visit Gynecology/Obstetrics [address] [place] [address] Rachelle Post CRNP [address] [place] [phone] 11/11/2024 10:00 AM EST Office Visit Gynecology/Obstetrics [facility] [address] [place] [address] Rachelle Post CRNP [address] [place] [phone] 11/25/2024 3:15 PM EST Office Visit Gynecology/Obstetrics [address] [place] [address] Rachelle Post CRNP [address] [place] [address] 12/23/2024 2:20 PM EST Office Visit Dermatology [address] [place] [address] Rosalia Dove PA-C [address] [place] [address] [place] [address] 06/23/2025 6:20 PM EDT Office Visit Family Medicine [address] [place] [phone] Jay Scott MD [address] [place] [address] [place] [address] Health Maintenance Due Date Last Done Comments [...] as of this encounter Visit Diagnoses Diagnosis Routine medical exam- Primary Routine general medical examination at a health care facility CROW (generalized anxiety disorder) Generalized anxiety disorder documented in this encounter Care Teams Cloth Spreader Relationship Specialty Start Date End Date Jay Scott MD [address] [place] [address] [place] [address] PCP - General Family Medicine 11/23/23 documented as of this encounter"
--- OUTSIDE RECORDS SUMMARY | 2025-01-27 04:44 | External Medical Summary ---
Author Name Unknown Address Unknown Organization K01[place] [place] [address] [place] [address] Laboratory Report Ordering Provider Test Date Status LAMAR JOHNSON 11/11/2024 14:49:56 Final Observation Date Value Abnormality Reference (Units ) Status Iron 11/11/2024 14:49:56 83 33-151 (ug /dL) Final Iron-binding capacity 11/11/2024 14:49:56 392 250-425 (ug/dL) Final Transferrin Sat % 11/11/2024 14:49:56 21 15 -55 (%) Final Performing Location [facility] [place] [address] [place] [address]
--- OUTSIDE RECORDS SUMMARY | 2025-01-27 04:44 | External Medical Summary ---
Author Name Unknown Address Unknown Organization [id number]:[facility] [place] [facility] - [address] [place] [address] Laboratory Report Ordering Provider Test Date Status LAMAR JOHNSON 11/11/2024 14:49:56 Final Observation Date Value Abnormality Reference (Units ) Status SYNC LEUKOCYTES IN BLOOD BY AUTOMATED COUNT 11/11/2024 14:49:56 8.61 4.00-10.80 (K/uL) Final Segs 11/11/2024 14:49:56 79.0 Above high normal 40.0-75.0 (%) Final Lymphs % 11/11/2024 14:49:56 15.4 Below low normal 18.0-42.0 (%) Final Monos 11/11/2024 14:49:56 5.2 1.0-11.0 (%) Final Eosinophils 11/11/2024 14:49:56 0.3 0.0-6.0 (%) Final Basos 11/11/2024 14:49:56 0.1 0.0-2.0 (%) Final Absolute Segs 11/11/2024 14:49:56 6.79 1.80-7.70 (K/uL) Final Lymphs, absolute 11/11/2024 14:49:56 1.33 1.00-4.80 (K/ul) Final Monos, Abs 11/11/2024 14:49:56 0.45 0.00-1.10 (K/uL) Final Eos, Abs 11/11/2024 14:49:56 0.03 0.00-0.70 (K/uL) Final Basos, Abs 11/11/2024 14:49:56 0.01 0.00-0.20 (K/uL) Final Performing Location [facility] 0 - [address] [place] [address]
--- OUTSIDE RECORDS SUMMARY | 2025-01-27 04:44 | External Medical Summary ---
Author Name Unknown Address Unknown Organization [id number]:[facility] [place] [address] [place] [address] Laboratory Report Ordering Provider Test Date Status LAMAR JOHNSON 11/11/2024 14:49:56 Final Observation Date Value Abnormality Reference (Units ) Status Treponema pallidum Ab [Presence] in Serum by Immunoassay 11/11/2024 14:49:56 Nonreactive Nonreactive Final No serologic evidence of syp hilis. No additional testing clinicially indicated at this time. Consider repeat testing in 2-4 weeks if acute or primary syphilis is suspected. Performing Location [facility] [place] [address] [place] [address]
--- OUTSIDE RECORDS SUMMARY | 2025-01-27 04:44 | External Medical Summary ---
Author Name Unknown Address Unknown Organization K01:[facility] [place] [address] [place] [address] Laboratory Report Ordering Provider Test Date Status LAMAR JOHNSON 11/11/2024 14:49:56 Final Observation Date Value Abnormality Reference (Units ) Status Retic, % (auto) 11/11/2024 14:49:56 1.86 0.80-1.90 (%) Final Reticulocytes, Absolute 11/11/2024 14:49:56 67.5 31.3-100.1 (K/uL) Final Reticulocyte fraction, immature 11/11/2024 14:49:56 12.8 2.5-20.6 (%) Final Reticulocyte HGB 11/11/2024 14:49:56 35.5 29.7-37.4 (pg) Final Performing Location [facility] [place] [facility] [address] [place] [address]
--- OUTSIDE RECORDS SUMMARY | 2025-01-27 04:44 | External Medical Summary ---
Author Name Unknown Address Unknown Organization [id number]:[facility] [address] [place] [address] Laboratory Report Ordering Provider Test Date Status LAMAR JOHNSON 11/11/2024 14:49:56 Final Observation Date Value Abnormality Reference (Units ) Status TSH 11/11/2024 14:49:56 0.65 0.27-4.20 (uIU/mL) Final Performing Location LABORATORY C - [address] [place] [address]
--- OUTSIDE RECORDS SUMMARY | 2025-01-27 04:44 | External Medical Summary ---
Author Name Unknown Address Unknown Organization [id number]:[facility] [place] [address] - [address] [place] [address] Laboratory Report Ordering Provider Test Date Status ALEXLAMAR 11/11/2024 14:49:56 Final Observation Date Value Abnormality Reference (Units ) Status Glucose [Moles/volume] in Serum or Plasma --1 hour post 50 g glucose PO 11/11/2024 14:49:56 102 70-129 (mg/dL) Final Performing Location [facility] [place] 57[address] 0 - [address] [place] [address]
--- OUTSIDE RECORDS SUMMARY | 2025-01-27 04:44 | External Medical Summary | Summary of Care ---
Author Name Unknown Organization [facility] Address [address] [facility] [place] [address] Phone [phone] Care Team Providers Care Coke Crusher Operator Name Role Phone Jay Scott MD Primary Care Provide r Reason for Visit * Reason Comments Return Visit Encounter Details Date Type Department Care Team (Late st Contact Info) Description 11/11/2024 2:30 PM EST Office Visit Gynecology/Obstetric s Elke Melendez [address] [place] [address] Taina Davis PA-C [address] [place] [address] HSV-1 (herpes simplex virus 1) infection*; CROW (generalized anxiety disorder); Encounter for supervision of other normal , unspecified trimester Allergies Active Allergy Reactions Criticality Noted [...] Answer Date Recorded PHQ-2 Score 0 05/14/2019 [place] Depression Scale Answer Date Recorded [place] Depression Scale Total 4 07/01/2024 The thought [...] Sign Reading Time Taken Comments Blood Pressure 100/62 11/11/2024 2:02 PM EST Pulse - - Temperature - - Respiratory Rate - - Oxygen Saturation - - Inhaled Oxygen Concentration - - Weight - - Height 165.1 cm (5' 5") 11/11/2024 2:02 PM EST Body Mass Index - - documented in this encounter Progress Notes * Taina Davis PA-C - 11/11/2024 2:19 PM EST 28w4d Denies concerns. No LOF, VB, contractions. Baby active. Declines Tdap. Glucola and third tri labs today. RTC in 2 week Taina Davis PA-C documented in this encounter Nursing Notes * Amada Brand LPN - 11/11/2024 2:01 PM EST 28w4d Doing glucola documented in this encounter Plan of Treatment Upcoming Encounters Date Type Department Care Team (Late st Contact Info) Description 11/25/2024 3:15 PM EST Office Visit Gynecology/Obstetrics [address] [place] [address] Rachelle Post CRNP [address] [facility] [place] [address] 12/23/2024 2:20 PM EST Office Visit Dermatology [address] [place] [address] Rosalia Dove PA-C [address] [place] [address] [place] [address] 06/23/2025 6:20 PM EDT Office Visit Family Medicine [address] [place] [phone] Jay Scott MD [address] [place] [address] [place] [address] Health Maintenance Due Date Last Done Comments [...] as of this encounter Visit Diagnoses Diagnosis HSV-1 (herpes simplex virus 1) infection- Primary Herpes simplex without mention of complication CROW (generalized anxiety disorder) Generalized anxiety disorder Encounter for supervision of other normal , unspecified trimester documented in this encounter Care Teams Coke Crusher Operator Relationship Specialty Start Date End Date Jay Scott MD [address] [place] [address] [place] [address] PCP - General Family Medicine 11/23/23 documented as of this encounter
--- OUTSIDE RECORDS SUMMARY | 2025-01-27 04:44 | External Medical Summary ---
Author Name Unknown Address Unknown Organization K01:[facility] [place] [address] [facility] [address] [place] [address] Laboratory Report Ordering Provider Test Date Status LAMAR JOHNSON 11/11/2024 14:49:56 Final Observation Date Value Abnormality Reference (Units ) Status Ferritin 11/11/2024 14:49:56 21 13-150 (ng /mL) Final Performing Location [facility] [place] [address] [place] [address]
--- OUTSIDE RECORDS SUMMARY | 2025-01-27 04:44 | External Medical Summary ---
Author Name Unknown Address Unknown Organization K01:[facility] [place] - [address] [place] [address] Laboratory Report Ordering Provider Test Date Status LAMAR JOHNSON 11/11/2024 14:49:56 Final Observation Date Value Abnormality Reference (Units ) Status Creatinine 11/11/2024 14:49:56 0.7 0.5-1.0 (mg/dL) Final Glomerular filtration rate/1.73 sq M.predicted [Volume Rate/Area] in Serum, Plasma or Blood by Creatinine-based formula (CKD-EPI) 11/11/2024 14:49:56 >90 >=60 (mL/min) Final eGFR is calculated based on the CKD-EPI 2020 equation. Performing Location [facility]ORY [facility] [place] - [address] [place] [address]
--- OUTSIDE RECORDS SUMMARY | 2025-01-27 04:44 | External Medical Summary | Summary of Care ---
Author Name Unknown Organization [facility] Address [address] [facility] [place] [address] Phone [phone] Care Team Providers Care Health And Social Care Teacher Name Role Phone Jay Scott MD Primary Care Provide r Reason for Visit * Reason Comments Return Visit Encounter Details Date Type Department Care Team (Late st Contact Info) Description 10/28/2024 3:15 PM EST Office Visit Gynecology/Obstetric s [address] [place] [address] Rachelle Post CRNP [address] [place] [address] Normal , second trimester*; HSV-1 (herpes simplex virus 1) infection; CROW (generalized anxiety disorder) Allergies Active Allergy Reactions Criticality Noted Date Comments Bee Venom 01/28/2003 Sulfa Antibiotics Hives High 04/08/2013 documented as of this encounter (statuses as of 10/28/2024) Medications 28-0.8 MG Oral Tablet Take by mouth. Active Escitalopram Oxalate 5 MG Oral Tablet (Lexapro)Indicat ions:CROW (generalized anxiety disorder) Take 1 Tablet by mouth in the morning. In the morning.. 90 Tablet 3 10/18/2024 Active documented as of this encounter (statuses as of 10/28/2024) Active Problems Problem Noted Date Diagnosed Date [...] as of this encounter (statuses as of 10/28/2024) Resolved Problems Problem Noted Date Diagnosed Date Resolved Date , normal first 05/24/201904/21 Routine medical exam 10/19/2013 024 documented as of this encounter (statuses as of 10/28/2024) Immunizations Name Administration Dates Next Due HPV [...] Answer Date Recorded PHQ-2 Score 0 05/14/2019 [place] Depression Scale Answer Date Recorded [place] Depression Scale Total 4 07/01/2024 The thought [...] Sign Reading Time Taken Comments Blood Pressure 112/64 10/28/2024 3:16 PM EST Pulse - - Temperature - - Respiratory Rate - - Oxygen Saturation - - Inhaled Oxygen Concentration - - Weight 73.5 kg (162 lb) 10/28/2024 3:16 PM EST Height 165.1 cm (5' 5") 10/28/2024 3:16 PM EST Body Mass Index 26.96 10/28/2024 3:16 PM EST documented in this encounter Progress Notes * Rachelle Post CRNP - 10/28/2024 3:25 PM EST 26w4d No concerns. Good FM. No contractions, bleeding, LOF. Glucola with next visit. Will need breast pump at next visit. CINTHIA Dasilva * Amada Brand LPN - 10/28/2024 3:16 PM EST 26w4d Denies any concerns documented in this encounter Plan of Treatment Upcoming Encounters Date Type Department Care Team (Late st Contact Info) Description 11/11/2024 9:40 AM EST [facility] [address] [facility] [place] [phone] Jeri Melendez [address] [facility] [place] [address] 11/11/2024 10:00 AM EST Office Visit Gynecology/Obstetrics [facility] [address] [place] [address] Rachelle Post CRNP [address] [place] [address] 11/25/2024 3:15 PM EST Office Visit Gynecology/Obstetrics [address] [place] [address] Rachelle Post CRNP [address] [place] [address] 12/23/2024 2:20 PM EST Office Visit Dermatology [address] [place] [address] Rosalia Dove PA-C [address] [place] [address] [place] [address] 06/23/2025 6:20 PM EDT Office Visit Family Medicine [address] [place] [phone] Jay Scott MD [address] [place] [address] [place] [address] Scheduled Orders Name Type Priority Associated Diagnoses Orde r Schedule CBC WITH WBC DIFFERENTIAL AND ANEMIA REFLEX WORKUP Lab Routine Normal , second trimester Expected: 11/04/2024 (Approximate), Expires: 10/28/2025 SYPHILIS ANTIBODY SCREEN WITH REFLEX TO RPR Lab Routine Normal , second trimester Expected: 11/04/2024 (Approximate), Expires: 10/28/2025 50-G GESTATIONAL GLUCOSE, 1 HOUR Lab Routine Normal , second trimester Expected: 11/04/2024 (Approximate), Expires: 10/28/2025 Health Maintenance Due Date Last Done Comments [...] as of this encounter Visit Diagnoses Diagnosis Normal , second trimester- Primary HSV-1 (herpes simplex virus 1) infection Herpes simplex without mention of complication CROW (generalized anxiety disorder) Generalized anxiety disorder documented in this encounter Care Teams Health And Social Care Teacher Relationship Specialty Start Date End Date Jay Scott MD [address] [place] [address] [place] [address] PCP - General Family Medicine 11/23/23 documented as of this encounter
--- OUTSIDE RECORDS SUMMARY | 2025-01-27 04:44 | External Medical Summary ---
Author Name Unknown Address Unknown Organization K01:[facility] [place] - [address] [place] [address] Laboratory Report Ordering Provider Test Date Status LAMAR JOHNSON 11/11/2024 14:49:56 Final Observation Date Value Abnormality Reference (Units ) Status Vitamin B12 11/11/2024 14:49:56 [phone] (pg/mL) Final Performing Location [facility] [place] - [address] [place] [address]
--- OUTSIDE RECORDS SUMMARY | 2025-01-27 04:44 | External Medical Summary ---
Author Name Unknown Address Unknown Organization K0G:LAB[facility]AT[facility] [place] 57-[address] - [address] [place] [address] Laboratory Report Ordering Provider Test Date Status LAMAR JOHNSON 11/11/2024 14:49:56 Final Observation Date Value Abnormality Reference (Units ) Status WBC, Total 11/11/2024 14:49:56 8.61 4.00-10.8 0 (K/uL) Final RBC 11/11/2024 14:49:56 3.54 3.85-5.15 (M/uL) Final Hemoglobin 11/11/2024 14:49:56 11.5 Below low normal 12 .0-15.3 (g/dL) Final Anemia reflex testing trigge rs on a HGB < 12.0 for Females and HGB < 13.0 for Males in accordance with the WHO Anemia Guidelines
Anemia reflex testing triggers on a HGB < 12.0 for Females and HGB < 13.0 for Males in accordance with the WHO Anemia Guidelines HCT 11/11/2024 14:49:56 34.0 Below low normal 36. 0-45.2 (%) Final MCV 11/11/2024 14:49:56 96.0 81.5-97.5 (fL) Final MCH 11/11/2024 14:49:56 32.5 27.0-34.0 (pg) Final MCHC 11/11/2024 14:49:56 33.8 32.0-36.0 (g/dL) Final RDW 11/11/2024 14:49:56 12.5 11.5-15.5 (%) Final Platelets 11/11/2024 14:49:56 210 140-400 (K /uL) Final MPV 11/11/2024 14:49:56 10.3 6.6-11.1 ( fL) Final Performing Location LABORATORY [facility] [place] 57-1 0 - [address] [place] [address]
--- OUTSIDE RECORDS SUMMARY | 2025-01-27 04:44 | External Medical Summary | Summary of Care ---
Author Name Unknown Organization [facility] Address [address] [facility] [place] [address] Phone [phone] Care Team Providers Care Nuclear Supervising Operator Name Role Phone Jay Scott MD Primary Care Provide r Reason for Visit * Reason Comments Return Visit Encounter Details Date Type Department Care Team (Late st Contact Info) Description 09/30/2024 3:15 PM EST Office Visit Gynecology/Obstetric s [address] [place] [address] Rachelle Post CRNP [address] [place] [address] Normal , second trimester*; HSV-1 (herpes simplex virus 1) infection; CROW (generalized anxiety disorder) Allergies Active Allergy Reactions Criticality Noted Date Comments Bee Venom 01/28/2003 Sulfa Antibiotics Hives High 04/08/2013 documented as of this encounter (statuses as of 09/30/2024) Medications Escitalopram Oxalate 5 MG Oral Tablet (Lexapro)Indicat ions:CROW (generalized anxiety disorder) Take 1 Tablet by mouth in the morning. In the morning.. 90 Tablet 1 06/11/2024 Active 28-0.8 MG Oral Tablet Take by mouth. Active documented as of this encounter (statuses as of 09/30/2024) Active Problems Problem Noted Date Diagnosed Date [...] as of this encounter (statuses as of 09/30/2024) Resolved Problems Problem Noted Date Diagnosed Date Resolved Date , normal first 05/24/201904/21 Routine medical exam 10/19/2013 024 documented as of this encounter (statuses as of 09/30/2024) Immunizations Name Administration Dates Next Due HPV [...] Answer Date Recorded PHQ-2 Score 0 05/14/2019 [place] Depression Scale Answer Date Recorded [place] Depression Scale Total 4 07/01/2024 The thought [...] Sign Reading Time Taken Comments Blood Pressure 114/62 09/30/2024 3:13 PM EST Pulse - - Temperature - - Respiratory Rate - - Oxygen Saturation - - Inhaled Oxygen Concentration - - Weight 68.9 kg (152 lb) 09/30/2024 3:13 PM EST Height 165.1 cm (5' 5") 09/30/2024 3:13 PM EST Body Mass Index 25.29 09/30/2024 3:13 PM EST documented in this encounter Progress Notes * Rachelle Post CRNP - 09/30/2024 3:23 PM EST 22w4d No concerns. Feeling well. Baby is active. Denies contractions, bleeding, LOF. CINTHIA Dasilva * Amada Brand LPN - 09/30/2024 3:13 PM EST 22w4d Denies any concerns documented in this encounter Plan of Treatment Upcoming Encounters Date Type Department Care Team (Late st Contact Info) Description 10/18/2024 4:00 PM EST Office Visit Family Medicine [address] [place] [phone] Jay Scott MD [address] [place] [address] [place] [address] 10/28/2024 3:15 PM EST Office Visit Gynecology/Obstetrics [address] [place] [address] Rachelle Post CRNP [address] [place] [address] 11/11/2024 10:00 AM EST Office Visit Gynecology/Obstetrics [facility] [address] [place] [address] Rachelle Post CRNP [address] [place] [address] 11/25/2024 3:15 PM EST Office Visit Gynecology/Obstetrics [address] [place] [address] Rachelle Post CRNP [address] [place] [address] 12/23/2024 2:20 PM EST Office Visit Dermatology [address] [place] [address] Rosalia Dove PA-C [address] [place] [address] [place] [address] 06/23/2025 6:20 PM EDT Office Visit Family Medicine [address] [place] [phone] Jay Scott MD [address] [place] [address] [place] [address] Health Maintenance Due Date Last Done Comments [...] HPV (Gardasil) Vaccine Completed , 02/10/2009, 12/18/2008 Pneumococcal Vaccine: Pediatrics (0 to [...] disorder documented in this encounter Care Teams Nuclear Supervising Operator Relationship Specialty Start Date End Date Jay Scott MD [address] [place] [address] [place] [address] PCP - General Family Medicine 11/23/23 documented as of this encounter
--- OUTSIDE RECORDS SUMMARY | 2025-01-27 04:44 | External Medical Summary | Summary of Care ---
Author Name Unknown Organization [facility] Address [address] [facility] [address] Phone [phone] Care Team Providers Care Diesel Retrofit Designer Name Role Phone Jay Scott MD Primary Care Provide r Reason for Visit * Reason Comments Outpatient Testing Encounter Details Date Type Department Care Team (Late st Contact Info) Description 08/26/2024 3:40 PM EDT Laboratory Laboratory [address] [place] [phone] [place] [address] Arrived Allergies Active Allergy Reactions Criticality Noted Date [...] Answer Date Recorded PHQ-2 Score 0 05/14/2019 [place] Depression Scale Answer Date Recorded [place] Depression Scale Total 4 07/01/2024 The thought [...] on file documented as of this encounter Plan of Treatment Upcoming Encounters Date Type Department Care Team (Late st Contact Info) Description 09/17/2024 12:30 PM EDT Imaging Radiology [address] [place] [address] 09/30/2024 3:15 PM EST Office Visit Gynecology/Obstetrics [address] [place] [address] Rachelle Post CRNP [address] [place] [address] 10/18/2024 4:00 PM EST Office Visit Family Medicine [address] [place] [phone] Jay Scott MD [address] [place] [address] [place] [address] 10/28/2024 3:15 PM EST Office Visit Gynecology/Obstetrics [address] [place] [address] Rachelle Post CRNP [address] [place] [address] 11/11/2024 10:00 AM EST Office Visit Gynecology/Obstetrics [facility] [address] [place] [address] Rachelle Post CRNP [address] [place] [address] 11/25/2024 3:15 PM EST Office Visit Gynecology/Obstetrics [address] [place] [address] Rachelle Post CRNP [address] [place] [address] 12/23/2024 2:20 PM EST Office Visit Dermatology [address] [place] [address] Rosalia Dove PA-C [address] [place] [address] [place] [address] 06/23/2025 6:20 PM EDT Office Visit Family Medicine [address] [place] [phone] Jay Scott MD [address] [place] [address] [place] [address] Health Maintenance Due Date Last Done Comments [...] filedocumented as of this encounter Care Teams Diesel Retrofit Designer Relationship Specialty Start Date End Date Jay Scott MD [address] [place] [address] [place] [address] PCP - General Family Medicine 11/23/23 documented as of this encounter
--- OUTSIDE RECORDS SUMMARY | 2025-01-27 04:45 | External Medical Summary ---
Author Name Unknown Address Unknown Organization : Laboratory Report Ordering Provider Test Date Status LAMAR JOHNSON 08/26/2024 15:36:53 Final Observation Date Value Abnormality Reference (Units ) Status INTERPRETATION 08/26/2024 15:36:53 SEE BELOW Final Screen negative for open NTD . RISK FOR ONTD 08/26/2024 15:36:53 <1:5000 Final CALC'D GESTATIONAL AGE 1008/26/2024 15:36:53 17.6 Final AFP, SERUM 08/26/2024 15:36:53 28.6 (ng/mL) Final AFP MOM 08/26/2024 15:36:53 0.68 Final Reference Range:
NTD <2 .50
IDD <1.90
TWINS <4.00
TWINS IDD <3.50
TRIPLETS <4.50
The AFP test result indicates that this patient is
screen negative for open NTD. It should be noted
that normal test results can never guarantee the
of a normal baby and that 2-3% of newborns
have some type of physical or mental defect, many
of which are undetectable through any known
diagnostic technique.
This is a screening test, not a diagnostic test.
This risk assessment report is based in part on
demographic data provided by the ordering
physician. Please notify the laboratory promptly
if any data are incorrect. For assistance with
recalculations, please call your local [facility] laboratory. For assistance with
interpretation of these results, please contact
your Local [facility] genetic counselor or
call [phone] ([phone]).
Interpretive Cutoffs
Screen Positive for Open NTD:
> or = 2.50 adjusted MOM
> or = 1.90 adjusted MOM for insulin- dependent diabetics
> or = 4.00 adjusted MOM for twins
> or = 3.50 adjusted MOM for twins insulin-dependent diabetics
> or = 4.50 adjusted MOM for triplets
For additional information, please refer to
[email or web address].[employer]ize/faq/[email or web address]
(This link is being provided for
informational/educational purposes only.) DATE OF 08/26/2024 15:36:53 1992 Final COLLECTION DATE 08/26/2024 15:36:53 08/26/2024 Final MATERNAL WEIGHT 08/26/2024 15:36:53 147 (lbs ) Final EST'D DATE OF DELIVERY 08/26/2024 15:36:53 01/30/2025 Final KAVITHA DETERMINED BY 08/26/2024 15:36:53 NG Final MOTHER'S ETHNIC ORIGIN 08/26/2024 15:36:53 WHITE Final NUMBER OF FETUSES 08/26/2024 15:36:53 1 Final INSULIN DEPEND DIABETIC 08/26/2024 15:36:53 NO Final REPEAT SPECIMEN 08/26/2024 15:36:53 NO Final HX OF NEURAL TUBE DEFECTS 08/26/2024 15:36:53 NO Final PREV DOWN SYND 08/26/2024 15:36:53 NO Final DONOR EGG 08/26/2024 15:36:53 NO Final DONOR AGE: EGG RETRIEVAL 08/26/2024 15:36:53 NOT GIVEN Final Test performed by [facility]
[address] [facility],
[place] [address]

Market Gardener: Colette Giron MD,PHD,MARCELINO
Test Reported by Betty Barnett,
[facility],
[address] [place], [place]
Roverto Duggan M.D., Ph.D., Director of Laboratories
, [facility] [id number] Performing Location
[2025-01-27] MEDS ORDERED: LACTATED RINGER'S 1,000 ML IV PRN (05:17)
[2025-01-27] MEDS: OXYTOCIN 30 UNITS/NSS 30 UNITS/500 ML BAG IV PRN (06:05)
[2025-01-27 06:13] LABS: Hemoglobin 13.5 g/dl (12.0-16.0); Mean Corpuscular Hemoglobin 32.1 pg (25.0-34.0); Mean Corpuscular Hgb Conc 35.5 g/dL (32.0-36.0); Mean Corpuscular Volume 90.3 fL (80.0-100.0); Mean Platelet Volume 10.9 fL (9.4-12.4); Platelet Count 236 K/uL (130-400); RDW Coefficient of Variation 12.9 % (11.5-14.5); RDW Standard Deviation 41.9 fL (36.4-46.3); Red Blood Count 4.21 M/uL (4.20-5.40); White Blood Count 13.55 K/ul (4.8-10.8)
[2025-01-27] MEDS: LIDOCAINE 1% LOCAL 20 ML VIAL INFIL PRN (06:33)
[2025-01-27] MEDS ORDERED: bisacodyL 10 MG SUPP PR PRN (06:58)
[2025-01-27] MEDS ORDERED: HYDROCORTISONE ACETATE 25 MG SUPP PR PRN (06:58)
[2025-01-27] MEDS ORDERED: DIPHTHER/TETAN/PERTUS Vaccine (Tdap, Adol/Adult) 0.5mL IM ONE (06:58)
[2025-01-27] MEDS ORDERED: oxyCODONE/ACETAMINOPHEN 5mg/325mg TAB PO PRN (06:58)
[2025-01-27] MEDS ORDERED: ACETAMINOPHEN W/CODEINE #3 1 TAB PO PRN (06:58)
[2025-01-27] MEDS ORDERED: ACETAMINOPHEN 325 MG TAB PO PRN (06:58)
[2025-01-27] MEDS ORDERED: OXYTOCIN 30 UNITS/NSS 30 UNITS/500 ML BAG IV PRN (06:58)
--- NOTE | 2025-01-27 07:03 | Delivery Summary ---
Vaginal Delivery Summary Date of Service January 27, 2025 Vaginal Delivery Summary Patient is a 2 para 2 followed in the office for care and delivery. Well dated with first trimester ultrasound. She comes in at 39 weeks 4 days gestation. She is an active labor having strong contractions every 2 to 3 minutes. History of precipitous delivery with her first child. 3 to 4 cm on admission. Patient did not call prior to showing up on maternity. They called my house I came in immediately. At the time I arrived she was 9 cm. She quickly went to full dilatation pushed out a live male infant via direct occiput anterior position over a small midline episiotomy. Episiotomy was done secondary to the fact that she went for over 5 minutes without the heart tones getting to 100 beats a minute. This was despite the fact that she was given oxygen. Cord was allowed to pulse for 1 full minute. Cord was then clamped cut by the father. With IV Pitocin running the placenta was removed intact. Inspection of the perineum revealed a second-degree midline laceration. A pudendal block was inserted for local anesthesia. 10 mL of local was placed on each side in the sacrospinous notch. Some additional local was placed on the patient's left side. Block was tested with pickups. 2-0 Vicryl was used to approximate the vaginal mucosa out and to beyond the hymenal ring. 2 interrupted sutures were used to bolster the rectal sphincter capsule. Separate sutures used approximate the perineal body. A deep suture was used approximate the bulbocavernosus muscle. Running subcuticular sutures used approximate the perineal skin edges. Following this sponges were removed from the vagina. Repair was checked and found to be intact. Quantitative blood loss was 120 mL. Patient tolerated procedure well.
[2025-01-27] MEDS: IBUPROFEN 600 MG TAB PO PRN (08:33)
[2025-01-27] MEDS: BENZOCAINE 20% SPRY 85 APPLN/85 GM CAN EXT PRN (08:35)
[2025-01-27] MEDS: DOCUSATE SODIUM 100 MG CAP PO SCH (08:35)
[2025-01-27] MEDS: PRENATAL VITAMIN 1 TAB PO SCH (08:35)
[2025-01-28 01:43] VITALS: RESP 16; O2SAT 98
[2025-01-28 04:26] VITALS: PULSE 60
[2025-01-28 06:43] LABS: Hematocrit (blood only) 35.1 % (37.0-47.0); Mean Corpuscular Hgb Conc 34.2 g/dL (32.0-36.0); Mean Corpuscular Volume 93.6 fL (80.0-100.0); Mean Platelet Volume 10.9 fL (9.4-12.4); Platelet Count 175 K/uL (130-400); RDW Standard Deviation 44.3 fL (36.4-46.3); Red Blood Count 3.75 M/uL (4.20-5.40); White Blood Count 11.64 K/ul (4.8-10.8)
[2025-01-28 07:19] VITALS: TEMP 98.6
[2025-01-28 07:46] VITALS: BP 134/87
--- NOTE | 2025-01-28 09:35 | Obstetrical Progress Note ---
Date of Service January 28, 2025 Assessment & Plan Admission and Anticipated Discharge Date Admission Date: January 27, 2025 Subjective afebrile abdomen soft and non tender no calf tenderness ambulating well vaginal bleeding scant hgb 12.0 Results & Data Vital Signs (Past 12 Hours) Vital Signs Temp Pulse Resp BP Pulse Ox O2 Del Method 01/28/25 07:45 134/87 01/28/25 07:14 37.0 C 60 16 144/85 H Room Air 01/28/25 03:30 36.7 C 60 16 143/87 H 98 Room Air 01/27/25 23:40 36.9 C 64 16 122/77 98 Room Air
[2025-01-28] MEDS ORDERED: bisacodyL 5 MG TABEC PO SCH (20:00)
== END 2025-01-28 11:06 | disposition home or self-care (01) | DRG 807 ==
LOC: OPB 04:39 → 4S1 04:40 → 4E2 10:43